=== PATIENT | female | born 1950 | race Asian ===

== ENCOUNTER 2023-09-30 15:49 | Outpatient (OUT) | payer MEDICARE, OTHER, SELFPAY ==
--- NOTE | 2023-09-30 15:57 | XR_ITS ---
[address] [address] Patient Name: SUZI FERNÁNDEZ MRN: [id number] date: 1950 Sex: F Assigned Patient Location: [facility] Current Patient Location: Accession/Order Number: [id number] Exam Date: 09/30/2023 16:19 Report Date: 10/02/2023 05:08 At the request of: KENNEDY BRITT Procedure: XR shoulder RT min 2V PROCEDURE: XR shoulder RT min 2V HISTORY: Right Shoulder Pain COMPARISON: None. FINDINGS: BONES:Mild degenerative changes acromioclavicular joint. Unremarkable humeral head and glenohumeral joint. SOFT TISSUES:No visible soft tissue swelling. EFFUSION:None visible. OTHER: Negative. XR/XR shoulder RT min 2V IMPRESSION: 1. Mild degenerative changes. Electronically authenticated by: SETH GAITAN Date: 10/02/2023 05:08
== END 2023-09-30 15:50 | disposition home or self-care (01) ==
LOC: RAD 15:53
PROVIDERS: PCP Nurse Practitioner; Visit Provider Nurse Practitioner
DX: M25.511 Pain in right shoulder (principal)
CPT/HCPCS: 73030

== ENCOUNTER 2024-12-31 09:54 | Observation (INO) | payer MEDICARE, OTHER, SELFPAY ==
[2024-12-31] VITALS (38 sets, daily range): BP systolic 135–178; BP diastolic 60–127; PULSE 43–148; TEMP 36.6–36.7; O2SAT 92–979; BMI 30.1; BMI 23.2
--- NOTE | 2024-12-31 10:19 | ECG_ITS ---
The [facility] Test Date: 2024-12-31 Pat Name: SUZI FERNÁNDEZ Department: Room: - Gender: Female Credit Collections Specialist: : 1950 Requested By: 1854 Order Number: [id number] Reading MD: KRYSTIN GRIJALVA M.D. Measurements Intervals [place] Rate: 132 P: -35911 MO: -15972 QRS: 100 QRSD: 84 T: 64 QT: 318 QTc: 396 Interpretive Statements 83804 Atrial fibrillation with rapid ventricular response 3233 Anteroseptal myocardial infarction, probably old [address] depression, probably digitalis effect 12133 Twave abnormality, possible lateral ischemia or digitalis effect 7102 Moderate right axis deviation 9150 abnormal ECG Compared to ECG 02/23/2017 01:52:38 Myocardial infarct finding now present Right-axis deviation now present Sinus rhythm no longer present ST (T wave) deviation still present Possible ischemia still present Electronically Signed On 12-31-2024 18:46:56 EDT by KRYSTIN GRIJALVA M.D.
--- NOTE | 2024-12-31 10:20 | XR_ITS ---
The [address] [address] Patient Name: SUZI FERNÁNDEZ MRN: [id number] date: 1950 Sex: F Assigned Patient Location: ER Current Patient Location: ED.MAIN Accession/Order Number: [id number] Exam Date: 12/31/2024 10:24 Report Date: 12/31/2024 11:07 At the request of: TONI LUCIO MD Procedure: XR chest 1V XR chest 1V 12/31/2024 10:30 AM SIGNS AND SYMPTOMS: ^sob PROTOCOL: Frontal radiograph of the chest COMPARISON: None FINDINGS: The trachea is midline. Atherosclerotic changes are noted in the aortic arch. The heart and mediastinal structures are within normal limits. Hazy bibasilar airspace opacities are noted left greater than right. This may be secondary to atelectasis or pneumonia. The bony thorax is intact. XR/XR chest 1V IMPRESSION: Hazy bibasilar airspace opacities are noted left greater than right. This may be secondary to atelectasis or pneumonia. Impression dictated by: Rob Redd M.D. 12/31/2024 11:07 AM [facility]ation [facility] Electronically authenticated by: [id number] Y Date: 12/31/2024 11:07
[2024-12-31 10:25] LABS: Hematocrit 42.9 % (36.0-48.0); Hemoglobin 15.1 g/dL (12.0-16.0); Immature Granulocytes Abs Auto 0.01 10^3/uL (0.00-0.03); Immature Granulocytes Pct Auto 0.2 % (0.0-0.5); Lymphocytes Absolute Auto 1.9 10^3/uL (1.2-3.8); Mean Corpuscular HGB Conc 35.2 g/dL (29.9-35.2); Mean Corpuscular Hemoglobin 31.3 pg (26.7-34.0); Mean Corpuscular Volume 89.0 fL (81.0-99.0); Platelet Count 200 10^3/uL (150-450); Red Blood Count 4.82 10^6/uL (4.20-5.40); White Blood Count 6.1 10^3/uL (4.0-11.0)
[2024-12-31 10:36] LABS: SARS-CoV-2 Ag NEGATIVE (NEGATIVE)
[2024-12-31 11:04] LABS: INR 0.96; Prothrombin Time 10.2 sec (9.0-11.6)
[2024-12-31 11:07] LABS: Alanine Aminotransferase 41 U/L (14-59); Albumin Globulin Ratio 0.8; Albumin Level 3.5 g/dL (3.4-5.0); Alkaline Phosphatase 106 U/L (46-116); Anion Gap 13.7; Aspartate Amino Transferase 24 U/L (15-37); Blood Urea Nitrogen 29.0 mg/dL (7.0-18.0); Calcium 9.3 mg/dL (8.5-10.1); Carbon Dioxide 27.3 mmol/L (21.0-32.0); Chloride 103 mmol/L (98-107); Estimated GFR (African America 38 (>=60 mL/min/1.73m^2); Estimated GFR (Non-African Ame 31 (>=60 mL/min/1.73m^2); Globulin 4.5 g/dL; Glucose 102 mg/dL (74-106); Magnesium 2.2 mg/dL (1.8-2.4); Potassium 3.0 mmol/L (3.5-5.1); Sodium 141 mmol/L (136-145); Total Protein 8.0 g/dL (6.4-8.2)
[2024-12-31] MEDS: DILTIAZEM HCL 25 MG/5 ML VIAL 10 MG IV (11:21)
--- NOTE | 2024-12-31 11:25 | ECG_ITS ---
The [facility] Test Date: 2024-12-31 Pat Name: SUZI FERNÁNDEZ Department: Room: - Gender: Female Rn Supplemental: : 1950 Requested By: 1854 Order Number: [id number] Reading MD: KRYSTIN GRIJALVA M.D. Measurements Intervals [place] Rate: 82 P: -75827 MT: -85572 QRS: 93 QRSD: 86 T: -44 QT: 358 QTc: 397 Interpretive Statements 1210 Atrial fibrillation [address] depression, probably digitalis effect 07867 Twave abnormality, possible lateral ischemia or digitalis effect 40399 Twave abnormality, possible inferior ischemia or digitalis effect 7102 Moderate right axis deviation 9150 abnormal ECG Compared to ECG 12/31/2024 10:15:33 Myocardial infarct finding no longer present ST (T wave) deviation still present Possible ischemia still present Electronically Signed On 12-31-2024 18:47:26 EDT by KRYSTIN GRIJALVA M.D.
--- NOTE | 2024-12-31 11:26 | ED_ITS ---
HPI - Chest Pain General Chief Complaint: Chest Pain Stated Complaint: COUGH, FEVER, RUNNY NOSE,CONGESTION, DIZZY Time Seen by Provider: 12/31/24 10:19 Source: patient Mode of arrival: walk-in Limitations: no limitations History of Present Illness HPI narrative: The patient 74-year-old female who is hypertensive the patient just came back from her trip to the [facility] on Friday, she does understand Estonian and she is providing most of the history although her helps sometimes with providing the history. The patient for the last few days has been having cough fever congestion and she just came back from the [facility] on Friday, did not have any chest pain but she does have some discomfort, no nausea no vomiting no other concerns no diarrhea The patient had no history of A-fib before and she also ran out of her medication for the last 2 weeks Related Data Allergies Allergy/AdvReac Type Severity Reaction Status Date / Time No Known Drug Allergies Allergy Verified 12/31/24 09:59 Review of Systems ROS Status of ROS 10 or more systems reviewed and unremark able except as noted in history and below PFSH PFSH Social History Little interest or pleasure in doing things: not at all Feeling down, depressed, or hopeless: not at all Exam Narrative Exam Narrative: Nurses notes and vital signs reviewed and patient is not hypoxic. General: Well-appearing and in no apparent distress. Skin: Warm, dry, no pallor noted. No rash. Head: Normocephalic, atraumatic. Neck: Supple, non-tender. Cardiovascular: Irregular rate and Rhythm without murmur, gallop or rub. Respiratory: No accessory muscle use or respiratory distress. Decreased air entry bilaterally at the bases Musculoskeletal: normal ROM, no calf or popliteal tenderness, no lower extremity edema/swelling GI: Abdomen is soft, non-distended. Normal bowel sounds. No masses appreciated. No tenderness to palpation. No rebound, guarding, or rigidity noted. Neurological: A&O x4. No cranial nerve dysfunction observed. No truncal ataxia. Moves all extremities. Sensation intact. Psychiatric: Cooperative and interactive. Normal mood and affect. Constitutional Vital Signs, click to edit/add: Last Vital Signs Temp 97.9 F 12/31/24 09:59 Pulse 79 12/31/24 11:30 Resp 16 12/31/24 11:30 BP 144/84 H 12/31/24 11:30 Pulse Ox 99 10/03/25 11:30 Course Vital Signs Vital signs: Vital Signs Temperature 97.9 F 12/31/24 09:59 Pulse Rate 92 H 12/31/24 09:59 Respiratory Rate 18 12/31/24 09:59 Blood Pressure 160/100 H 12/31/24 09:59 Pulse Oximetry 97 12/31/24 09:59 Temperature 97.9 F 12/31/24 09:59 Pulse Rate 79 12/31/24 11:30 Respiratory Rate 16 12/31/24 11:30 Blood Pressure 144/84 H 12/31/24 11:30 Pulse Oximetry 99 12/31/24 11:30 MDM - Chest Pain MDM Narrative Medical decision making narrative: The patient initial EKG showing A-fib with a heart rate of [address] elevation but there is some ST depression in lead V5 and V6 After the patient received Cardizem 1 dose bolus 10 mg as well as the drip started the EKG was repeated and it is showing heart rate of 82 with still some mild ST depression in V5 and V6 Patient troponin is 65 and it is mildly elevated could be secondary to the tachy cardia Right now the patient chest x-ray shows atelectasis versus pneumonia hazy opacity in the bases bilaterally The patient white blood cell was within normal and although the patient presented to us with cough her presentation seems to be more viral The patient D-dimer is elevated and there is a high suspicion of PE especially with the patient coming back from the [facility] on Friday and that was a long trip But the patient also had a chemistry that shows acute kidney injury with a GFR 31 the patient was started on IV fluid 1 L normal saline in addition to also the potassium repleted with p.o. potassium after the potassium result was 3 and the magnesium was within normal Right now I did discuss the case with and to rule out PE the patient will need a VQ scan as inpt , to avoid any contrast exposure Troponin is mildly elevated could be secondary to tachycardia Patient started on Lovenox 1 therapeutic dose in the ER The patient will be admitted under Dr Pat further evaluation of the new diagnosed A-fib as well as further evaluation of possible PE Lab Data Labs: Lab Results 12/31/24 12/31/24 12/31/24 Range/Units 10:15 10:16 10:39 WBC 6.1 (4.0-11.0) 10^3/uL RBC 4.82 (4.20-5.40) 10^6/uL Hgb 15.1 (12.0-16.0) g/dL Hct 42.9 (36.0-48.0) % MCV 89.0 (81.0-99.0) fL MCH 31.3 (26.7-34.0) pg MCHC 35.2 (29.9-35.2) g/dL RDW 13.4 (11.0-15.0) % Plt Count 200 (150-450) 10^3/uL MPV 11.7 (9.5-13.5) fL Neut % (Auto) 57.3 (43.0-75.0) % Lymph % (Auto) 30.8 (20.5-60.0) % [place] % (Auto) 10.4 (1.7-12.0) % Eos % (Auto) 0.8 L (0.9-7.0) % Baso % (Auto) 0.5 (0.2-2.0) % Neut # (Auto) 3.5 (1.4-6.5) 10^3/uL Lymph # (Auto) 1.9 (1.2-3.8) 10^3/uL [place] # (Auto) 0.6 (0.3-0.8) 10^3/uL Eos # (Auto) 0.1 (0.0-0.7) 10^3/uL Baso # (Auto) 0.0 (0.0-0.1) 10^3/uL Abs Immat Gran (auto) 0.01 (0.00-0.03) 10^3/uL Imm/Tot Granulo (auto) 0.2 (0.0-0.5) % PT 10.2 (9.0-11.6) sec INR 0.96 D-Dimer 0.64 H* (<=0.59) mg/L FEU Sodium 141 (136-145) mmol/L Potassium 3.0 L (3.5-5.1) mmol/L Chloride 103 (98-107) mmol/L Carbon Dioxide 27.3 (21.0-32.0) mmol/L Anion Gap 13.7 BUN 29.0 H (7.0-18.0) mg/dL Creatinine 1.62 H (0.55-1.02) mg/dL Est GFR ( Amer) 38 L (>=60 mL/min/1.73m^2) Est GFR (Non-Af Amer) 31 L (>=60 mL/min/1.73m^2) BUN/Creatinine Ratio 17.9 Glucose 102 (74-106) mg/dL Calcium 9.3 (8.5-10.1) mg/dL Magnesium 2.2 (1.8-2.4) mg/dL Total Bilirubin 0.7 (0.2-1.0) mg/dL AST 24 (15-37) U/L ALT 41 (14-59) U/L Alkaline Phosphatase 106 (46-116) U/L Troponin I High Sens 65.6 H* (4.0-51.3) pg/mL Total Protein 8.0 (6.4-8.2) g/dL Albumin 3.5 (3.4-5.0) g/dL Globulin 4.5 g/dL Albumin/Globulin Ratio 0.8 Influenza Type A Ag Negative Influenza Type B Ag Negative SARS-CoV-2 Ag (CV2AG) Negative (NEGATIVE) Discharge Plan Discharge Chief Complaint: Chest Pain Clinical Impression: Atrial fibrillation with rapid ventricular response, RAYMOND (acute kidney injury), Acute hypokalemia, Elevated troponin, D-dimer, elevated Patient Disposition: Admitted As Inpatient Time of Disposition Decision: 12:01
[2024-12-31] MEDS: POTASSIUM BICARBONATE/CIT 25 MEQ TABLET EFF 50 MEQ PO (12:21)
[2024-12-31] MEDS: ENOXAPARIN SODIUM 80 MG/0.8 ML SYRINGE 70 MG SUBQ (12:21)
[2024-12-31] MEDS: 0.9 % SODIUM CHLORIDE 1,000 ML 1000 ML IV (12:21)
--- NOTE | 2024-12-31 12:54 | CA_ITS ---
Patient Name: SUZI FERNÁNDEZ MR#: [id number] : 1950 Exam Date: 12/31/2024 Ordering Doctor: ADONAY KOROMA ECHOCARDIOGRAM REPORT PROCEDURE: CA ECHO DOPPLER COMPLETE INDICATIONS: A fib - resolved, hypertension, cardiac stent COMPARISON: None. DESCRIPTION: COMPLETE ECHOCARDIOGRAM Real-time transthoracic echocardiography with 2D, M-mode, spectral and color flow Doppler performed. QUALITY: Technical quality was good. LEFT VENTRICLE: Normal chamber size. Left ventricle wall thickness at upper limit of normal. Left ventricle stock function appears to be moderately reduced globally, in addition the septal apical segment is akinetic, ejection fraction is estimated to be approximately 35% DIASTOLIC: Grade 1 diastolic dysfunction ATRIAL SEPTUM: Appears intact LEFT ATRIUM: Normal chamber size. RIGHT ATRIUM: Normal chamber size. RIGHT VENTRICLE: Normal chamber size. Normal right ventricular systolic function. TRICUSPID VALVE: Normal mobility and thickness. No stenosis with trace regurgitation. No evidence of pulmonary hypertension.RVSP 31 mmHg MITRAL VALVE: Normal mobility and thickness. No evidence of mitral valve stenosis. There is no mitral annular calcification. Mild mitral regurgitation. AORTIC VALVE: Normal trileaflet appearance. No visible sclerosis. Normal leaflet mobility. No evidence of aortic valve stenosis. No aortic regurgitation. AORTIC ROOT: Normal diameter and appearance. Ascending aorta is normal in size. PULMONIC VALVE: Normal thickness and mobility. No stenosis. Trivial regurgitation. PERICARDIUM: No evidence of pericardial effusion. IVC: Normal size and Collapes with inspirations. PLEURA: CONCLUSION: Normal left ventricle cavity size and wall thickness Moderately reduced left ventricle systolic function globally, in addition the septal apical segment is akinetic, ejection fraction 35% Grade 1 diastolic dysfunction Normal right ventricle size and systolic function Normal right-sided pressures, RVSP 31 mmHg Mild mitral regurgitation Adult Echocardiography Procedure Report Left Ventricle LVEDD (3.7 - 5.6 cm): 5.08 cm LVESD (2.2 - 4.0 cm): 3.86 cm LVIVS thickness (0.6 - 1.2 cm): 1.12 cm LVPW thickness (0.5 - 1.0 cm): 0.99 cm e': 0.04 m/s E - e': 10.28 LVOT Max Gradient: 1.29 mm[Hg] LVOT Area (cm2): 0.57 m/s Peak Velocity (LVOT): 0.57 m/s Mean Velocity (LVOT): 0.40 m/s LVOT Diameter 2.13 cm Left Atrium LA Volume Index (2D A2C): 30.52 ml/m2 Left Atrium Systolic Dimension: 3.78 cm Mitral Valve MV E to A Ratio: 0.96 Mitral Valve A-Wave Peak Velocity: 0.47 m/s Mitral Valve E-Wave Peak Velocity: 0.46 m/s Right Ventricle Aorta AO Root Diam: 2.87 cm Ascending Ao Diam: 2.67 cm Aortic Valve AoV Area (Peak Nitin): 1.49 cm2, 1.49 cm2 AoV Area (VTI): 1.58 cm2, 1.58 cm2 Peak Velocity(Antegrade Flow): 1.36 m/s Peak Gradient(Antegrade Flow): 7.39 mm[Hg] Mean Velocity(Antegrade Flow): 0.85 m/s Mean Gradient(Antegrade Flow): 3.35 mm[Hg] Velocity Time Integral: 27.06 cm Tricuspid Valve Peak Velocity (Regurgitant Flow): 2.64 m/s, 2.45 m/s Pulmonic Valve Peak Velocity: 0.84 m/s Peak Gradient: 2.85 mm[Hg] Right Atrium Right Atrium Systolic Pressure: 16.94 ml, 16.94 ml Dictated by: Shantell Cantor MD on 12/31/2024 at 16:52 Approved by: Shantell Cantor MD on 12/31/2024 at 17:03
--- NOTE | 2024-12-31 13:59 | ECG_ITS ---
The [facility] Test Date: 2024-12-31 Pat Name: SUZI FERNÁNDEZ Department: Room: 2221 Gender: Female Wellness Coordinator: : 1950 Requested By: 1854 Order Number: [id number] Reading MD: KRYSTIN GRIJALVA M.D. Measurements Intervals [place] Rate: 46 P: 61 HI: 228 QRS: 98 QRSD: 94 T: 270 QT: 438 QTc: 398 Interpretive Statements 1130 Sinus bradycardia 2231 First degree AV block [address] depression [address] & Twave abnormality 7102 Moderate right axis deviation 9150 abnormal ECG Compared to ECG 12/31/2024 11:27:38 First degree AV block now present Atrial fibrillation no longer present ST (T wave) deviation still present Electronically Signed On 12-31-2024 18:48:15 EDT by KRYSTIN GRIJALVA M.D.
--- NOTE | 2024-12-31 13:59 | PC.NURSE ---
admitted to stepdown, oriented to call light and room. denies pain, had 1 time emesis of 50cc. assessment completed. stated she recently traveled back from the [facility], after being there for almost one year. pt ran out off her medications while there. er nurse stated she converted at 1300 prior to coming up to unit. this nurse called to bring in med bottles for dosing.
--- NOTE | 2024-12-31 14:07 | P.HP_ITS ---
HPI H&P: HPI History of Present Illness Chief complaint: COUGH, FEVER, RUNNY NOSE,CONGESTION, DIZZY, AFIB R Narrative: Mrs. Galaviz is a 74-year-old female who came to the emergency room after her trip coming back from the [facility]. Patient reported having chest discomfort, dizziness, cough and not feeling well. She was found to have A-fib with RVR. No prior history of A-fib. She reported having history of cardiac stent many years ago. She takes aspirin. She does not take Plavix according to her. Some language barrier therefore information may not be translated accurately by her. No chest pain just chest discomfort. No abdominal pain, nausea or vomiting. Opioid HPI Opioid Management Most Recent Pain and Opioid Data: Last ORT Total Score 0 Today, 13:24 Last ORT Risk Category Low Risk Today, 13:24 Review of Systems ROS Status of ROS 10 or more systems reviewed and unremark able except as noted in history and below PFSH PFS Medical History (Updated 12/31/24 @ 13:33 by Nelly Snyder) HTN (hypertension) ?I10 - Essential (primary) hypertension (ICD-10) Surgical History (Updated 12/31/24 @ 13:33 by Nelly Snyder) History of cholecystectomy ?Z90.49 - Acquired absence of other specified parts of digestive tract (ICD- 10) H/O heart artery stent ?Z95.5 - Presence of coronary angioplasty implant and graft (ICD-10) Social History Highest level of school completed/degree received: 9th grade Little interest or pleasure in doing things: not at all Feeling down, depressed, or hopeless: not at all Meds Home Medications and Allergies Allergies Allergy/AdvReac Type Severity Reaction Status Date / Time No Known Drug Allergies Allergy Verified 12/31/24 09:59 Exam Narrative Exam Narrative: [pt is awake and alert. oriented to place, time and person HEENT: [place] conjunctiva and NL buccal mucosa Neck: Supple, no tenderness Endocrine: No Thyromegaly. Vascular: No JVD or carotid bruit. Lymphatic: No cervical lymphadenopathy. Chest: CTA no DTP. Heart RRR, no extra sound or murmur. Patient converted to sinus rhythm on the monitor Abd: Soft, no tenderness, no rebound and no rigidity. Increase abd girth therefore clinically I could not exclude the possibility of intra abd mass or organomegaly. LE: No cyanosis or clubbing, no varices or edema. Neuro: A A O. Nl speech, comprehension and attention. Nl and symetrical motor and tone examination through out. []] Constitutional Vital Signs, click to edit/add: Last Vital Signs Temp 98.1 F 12/31/24 13:24 Pulse 49 L 12/31/24 14:00 Resp 15 12/31/24 14:00 BP 165/89 H 12/31/24 13:51 Pulse Ox 98 12/31/24 14:00 O2 Del Method Room Air 12/31/24 13:24 Results Labs Labs: Short CBC 12/31/24 Range/Units 10:15 WBC 6.1 (4.0-11.0) 10^3/uL Hgb 15.1 (12.0-16.0) g/dL Hct 42.9 (36.0-48.0) % Plt Count 200 (150-450) 10^3/uL BMP 12/31/24 10:39 Sodium 141 Potassium 3.0 L Chloride 103 Carbon Dioxide 27.3 BUN 29.0 H Creatinine 1.62 H Glucose 102 Calcium 9.3 Liver Function 12/31/24 Range/Units 10:39 Total Bilirubin 0.7 (0.2-1.0) mg/dL AST 24 (15-37) U/L ALT 41 (14-59) U/L Alkaline Phosphatase 106 (46-116) U/L Albumin 3.5 (3.4-5.0) g/dL Assessment and Plan Assessment and Plan (1) D-dimer, elevated: (2) Elevated troponin: (3) Acute hypokalemia: (4) RAYMOND (acute kidney injury): (5) Atrial fibrillation with rapid ventricular response: Plan A-fib with RVR. Patient was started on Cardizem drip in the emergency room department. Patient converted to sinus rhythm. Cardizem drip was placed on hold. Currently patient is bradycardic. Heart rate is 55. I suspect that patient may have sick sinus syndrome. Requested echocardiogram. Start patient on small dose beta-antonieta with holding parameters if heart rate is below 65. Her [id number] score is 3. I started patient on Lovenox 1 mg/kg twice a day. Request cardiac consultation. Further needed diagnostic and therapeutic intervention relative to her cardiovascular disease will be deferred to be addressed by cardiology. Positive D-dimer. Recent trip to the [facility]. CTA could not be done due to renal failure. Patient was started on therapeutic dose of Lovenox for A-fib. That could also serve as a treatment for PE if she has 1. We will proceed with a CT of the chest if her kidney function returns to normal or proceed with the VQ scan on Friday. Continue therapeutic dose of anticoagulation. Elevated troponin. Troponin is trending down. This elevation could be due to A-fib with RVR Patient however has underlying CAD. She reported having stent in the past. She is on aspirin. Not sure if there is any progression of her CAD since her stent. She may need to have additional ischemic evaluation. Request cardiac consultation. Defer further needed diagnostic and therapeutic invention of the cardiovascular disease to cardiology team. Renal failure. No old records available. Unknown etiology or chronicity. Requested UA to see if patient has any RBC or protein to suggest nephritis or nephrotic syndrome. This could be acute related to A-fib and diminish renal perfusion. Blood pressure is on the high side, avoid fluid infusion Hoping that kidney function will return back to normal now that patient is converted to sinus rhythm and renal perfusion is restored. Try to get kidney function record from her PCP. Hypokalemia Potassium supplementation
--- NOTE | 2024-12-31 15:08 | SWNOTE1 ---
SW attempted to complete BIRCH form with pt, pt voiced to call her . SW attempted to call pt's , no answer.
--- NOTE | 2024-12-31 16:25 | PC.NURSE ---
Dr. Pat notified of BP
[2024-12-31] MEDS: HYDROCHLOROTHIAZIDE 25 MG TABLET 6.25 MG PO (18:14)
[2024-12-31] MEDS: LOSARTAN POTASSIUM 50 MG TABLET PO (18:15)
[2024-12-31] MEDS: ASPIRIN 81 MG TABLET.DR PO (18:15)
--- NOTE | 2024-12-31 18:21 | PM.CACN ---
History of Present Illness History of Present Illness Consult date: 12/31/24 Requesting physician: Reinaldo Pat Chief complaint: COUGH, FEVER, RUNNY NOSE,CONGESTION, DIZZY, AFIB R Narrative: Patient is a 74-year-old female from [facility]. Cardiology was consulted because of A-fib with RVR. Patient has history of coronary artery disease and remote stenting many years ago in [place], she has been following with a acreage reporter in [place] she has a follow-up appointment with him on 01/04/2025. She never had arrhythmia according to her. She does not know anything about her heart function but she is metoprolol, losartan and aspirin. She reports that amlodipine was discontinued because of leg edema and atorvastatin was discontinued because she did not need it anymore. She was in [facility] for close to 1 year and said they came back while she was in the airport carrying her heavy suit she felt lightheaded and fatigued and she became sweaty, when she arrived home in [place] she continued to feel tired therefore she decided to come to the hospital. She was noted to be in A-fib with RVR heart rate in the 120, blood pressure was 160/100. She was started on Cardizem IV infusion however she converted to sinus bradycardia heart rate in the 55 therefore Cardizem was discontinued. Also it was noted that her creatinine was 1.62 with GFR of 31 but we do not know her baseline. Her troponin was 65 which is slightly elevated?normal up to 51, second troponin was 59. She received IV fluids and she was also started on IV antibiotics for possible pneumonia. She was started on metoprolol 12.5 mg twice daily because of the bradycardia and on Lovenox 70 mg SQ twice daily for anticoagulation. While she was in the [facility] she was physically very active and she denies any chest pain or shortness of breath at rest or with exertion. She denies orthopnea or paroxysmal nocturnal dyspnea or dizziness or palpitations or legs edema She denies smoking, alcohol or illicit drugs First EKG showed atrial fibrillation with ST-T changes in inferior and lateral leads and possible old anterior infarct. Second EKG showed sinus bradycardia heart rate 43 bpm with none specific ST changes and possible old and anterior infarct Echo performed today showed moderately reduced left ventricle systolic function globally, in addition the septal apical segment is akinetic, grade 1 left ventricular diastolic dysfunction, mild mitral rotation and trace tricuspid regurgitation. [facility] Medical History (Updated 12/31/24 @ 18:31 by Shantell Cantor MD) HTN (hypertension) ?I10 - Essential (primary) hypertension (ICD-10) Surgical History (Updated 12/31/24 @ 13:33 by Nelly Snyder) History of cholecystectomy ?Z90.49 - Acquired absence of other specified parts of digestive tract (ICD-10) H/O heart artery stent ?Z95.5 - Presence of coronary angioplasty implant and graft (ICD-10) Social History Highest level of school completed/degree received: 9th grade Little interest or pleasure in doing things: not at all Feeling down, depressed, or hopeless: not at all Meds Home Medications and Allergies Home Medications ?Medication ?Instructions ?Recorded ?Confirmed ?Type aspirin 81 mg tablet,delayed 81 mg PO DAILY 12/31/24 12/31/24 History release (Adult Aspirin Regimen) losartan 100 1 tab PO DAILY 12/31/24 12/31/24 History mg-hydrochlorothiazide 12.5 mg tablet meclizine 12.5 mg tablet 12.5 mg PO TID PRN dizziness 12/31/24 12/31/24 History metoprolol succinate 25 mg 25 mg PO DAILY 12/31/24 12/31/24 History tablet,extended release 24 hr Allergies Allergy/AdvReac Type Severity Reaction Status Date / Time No Known Drug Allergies Allergy Verified 12/31/24 09:59 Exam Narrative Exam Narrative: She is alert, oriented, not in apparent distress HEENT within normal limit Neck supple, normal range of motion, no carotid bruit, jugular venous pressure is normal Lungs clear to auscultation without rales or rhonchi or wheezes Cardiovascular system regular rate and rhythm, normal S1 and S2, no murmur or click Abdomen soft benign no organomegaly or tenderness Extremities no edema or cyanosis or clubbing Neurological examination grossly normal Constitutional Vital Signs, click to edit/add: Last Vital Signs Temp 98.0 F 12/31/24 18:19 Pulse 59 L 12/31/24 18:00 Resp 18 12/31/24 16:00 BP 146/80 H 12/31/24 17:05 Pulse Ox 99 12/31/24 16:00 O2 Del Method Room Air 12/31/24 16:00 Results Labs and Meds Lab results: Cardiac Enzymes 12/31/24 Range/Units 10:39 AST 24 (15-37) U/L Coagulation 12/31/24 Range/Units 10:39 PT 10.2 (9.0-11.6) sec CBC 12/31/24 Range/Units 10:15 WBC 6.1 (4.0-11.0) 10^3/uL RBC 4.82 (4.20-5.40) 10^6/uL Hgb 15.1 (12.0-16.0) g/dL Hct 42.9 (36.0-48.0) % Plt Count 200 (150-450) 10^3/uL Neut # (Auto) 3.5 (1.4-6.5) 10^3/uL Lymph # (Auto) 1.9 (1.2-3.8) 10^3/uL [place] # (Auto) 0.6 (0.3-0.8) 10^3/uL Eos # (Auto) 0.1 (0.0-0.7) 10^3/uL Baso # (Auto) 0.0 (0.0-0.1) 10^3/uL Comprehensive Metabolic Panel 12/31/24 Range/Units 10:39 Sodium 141 (136-145) mmol/L Potassium 3.0 L (3.5-5.1) mmol/L Chloride 103 (98-107) mmol/L Carbon Dioxide 27.3 (21.0-32.0) mmol/L BUN 29.0 H (7.0-18.0) mg/dL Creatinine 1.62 H (0.55-1.02) mg/dL Glucose 102 (74-106) mg/dL Calcium 9.3 (8.5-10.1) mg/dL AST 24 (15-37) U/L ALT 41 (14-59) U/L Alkaline Phosphatase 106 (46-116) U/L Total Protein 8.0 (6.4-8.2) g/dL Albumin 3.5 (3.4-5.0) g/dL Intake and Output 12/31/24 12/31/24 12/31/24 07:59 15:59 23:59 Intake Total 1020.667 / 1020.667 Output Total 50 / 50 Balance 970.667 / 970.667 Intake: IV 1020.667 / 1020.667 0.9 % Sodium Chloride 1,000 ml 1000 / 1000 @ 1000 mls/hr IV .Q1H ONE Rx#: [id number] dilTIAZem HCL 125 mg In 0.9 % 20.667 / 20.667 Sodium Chloride 100 ml @ 10 MG/ HR 10 mls/hr IV TITR ONE Rx#: [id number] Output: Emesis 50 / 50 Other: Weight 57.425 kg Patient Weight 01/01/25 07:59 Weight 57.425 kg Assessment and Plan Assessment and Plan (1) Atrial fibrillation with rapid ventricular response: Assessment and Plan: She converted to sinus bradycardia (2) Sinus bradycardia: Assessment and Plan: Asymptomatic (3) Elevated troponin: Assessment and Plan: Slight elevation most likely due to combination of A-fib with RVR and underlying renal insufficiency. The patient did not have any chest pain (4) Cardiomyopathy: Assessment and Plan: Most likely ischemic and most likely chronic but we do not have any records on the patient. She has global hypokinesis in addition to septal apical akinesis indicating prior cardiac events. She does not have any signs or symptoms of decompensated congestive heart failure. She is on metoprolol and losartan/hydrochlorothiazide at home (5) Coronary artery disease: Assessment and Plan: Currently clinically stable. She is on aspirin, and metoprolol at home. She is not on statin according to her because she does not need it (6) H/O heart artery stent: (7) HTN (hypertension): Assessment and Plan: She is on metoprolol and losartan/hydrochlorothiazide at home (8) Renal insufficiency: Assessment and Plan: It is not clear if it is acute or chronic. We do not have prior labs on her Plan Agree on starting her on small dose of metoprolol 12.5 mg twice daily due to sinus bradycardia Agree on Lovenox for anticoagulation for now. Consider starting her on Eliquis when she goes home. Dose should be adjusted depends on her creatinine because her weight is 57 kg Continue aspirin Continue to monitor rhythm Continue to monitor kidney function and when it improves restart losartan Check BNP We need to get her records from her acreage reporter. I asked the patient to ask her family to bring her doctor name and phone number so we can contact them to get her records. If the cardiomyopathy is a new finding she will need further workup for underlying ischemia probably Lexiscan nuclear stress test in light of absence of any anginal symptoms. If she is discharged home over the weekend make sure that patient keep her appointment with her acreage reporter on 01/04/2025 Shantell Cantor MD, FACC
[2024-12-31 19:08] LABS: NT Pro B Type Natriuretic Pept 834.0 pg/mL (<=900.0)
[2025-01-01] VITALS (64 sets, daily range): BP systolic 162–187; BP diastolic 82–97; PULSE 45–71; TEMP 36.6; O2SAT 97–99
[2025-01-01] MEDS: ENOXAPARIN SODIUM 80 MG/0.8 ML SYRINGE 70 MG SUBQ ×2 (00:35→08:13)
[2025-01-01 00:47] LABS: Glucose Urine UA NEGATIVE (NEGATIVE)
[2025-01-01 00:57] LABS: Cast Seen? NONE SEEN #/LPF (NONE SEEN); Crystals Seen? None Seen #/HPF (None Seen); Urine Culture Indicated NO
--- NOTE | 2025-01-01 06:52 | ECG_ITS ---
[facility] Test Date: 2025-01-01 Pat Name: SUZI FERNÁNDEZ Department: Room: 2221 Gender: Female [employer]: : 1950 Requested By: [id number] Order Number: [id number] Reading MD: KRYSTIN GRIJALVA M.D. Measurements Intervals [place] Rate: 64 P: -89 [place]: 207 QRS: 60 QRSD: 110 T: 128 QT: 376 QTc: 385 Interpretive Statements NORMAL SINUS RHYTHM with occasional interpolated ventricular premature complexes 2231 First degree AV block [address] depression [address] & Twave abnormality 0102 ARTIFACT PRESENT 9150 abnormal ECG Compared to ECG 12/31/2024 14:05:39 First degree AV block now present Right-axis deviation no longer present ST (T wave) deviation still present Electronically Signed On 01-02-2025 13:21:40 EDT by KRYSTIN GRIJALVA M.D.
[2025-01-01 07:14] LABS: Hematocrit 39.2 % (36.0-48.0); Hemoglobin 13.5 g/dL (12.0-16.0); Mean Corpuscular HGB Conc 34.4 g/dL (29.9-35.2); Mean Corpuscular Hemoglobin 31.1 pg (26.7-34.0); Mean Corpuscular Volume 90.3 fL (81.0-99.0); Platelet Count 159 10^3/uL (150-450); Red Blood Count 4.34 10^6/uL (4.20-5.40); White Blood Count 3.8 10^3/uL (4.0-11.0)
[2025-01-01 07:35] LABS: Basophils Abs Manual 0.07 10^3/uL (0.00-0.10); Basophils Percent Manual 2.0 % (0.2-2.0); Eosinophils Absolute Manual 0.07 10^3/uL (0.00-0.70); Eosinophils Percent Manual 2.0 % (0.9-7.0); Lymphocytes Absolute Manual 2.05 10^3/uL (1.20-3.80); Lymphocytes Percent Manual 54.0 % (20.5-60.0); Monocytes Absolute Manual 0.15 10^3/uL (0.30-0.80); Monocytes Percent Manual 4.0 % (1.7-12.0); Segmented Neut Absolute Manual 1.44 10^3/uL (1.4-6.5); Segmented Neutrophils % Manual 38.0 (43.0-75.0)
[2025-01-01 07:55] LABS: Anion Gap 14.7; Blood Urea Nitrogen 24.0 mg/dL (7.0-18.0); Calcium 9.2 mg/dL (8.5-10.1); Carbon Dioxide 26.8 mmol/L (21.0-32.0); Chloride 106 mmol/L (98-107); Cholesterol 216 mg/dL (<=200); Estimated GFR (African America 60 (>=60 mL/min/1.73m^2); Estimated GFR (Non-African Ame 49 (>=60 mL/min/1.73m^2); Glucose 95 mg/dL (74-106); HDL Cholesterol 42 mg/dL (40-60); Magnesium 2.0 mg/dL (1.8-2.4); NT Pro B Type Natriuretic Pept 640.0 pg/mL (<=900.0); Potassium 3.5 mmol/L (3.5-5.1); Sodium 144 mmol/L (136-145); Thyroid Stimulating Hormone 1.373 uIU/mL (0.358-3.740); Triglycerides 124 mg/dL (<=150); VLDL CHOLESTEROL 24.8 mg/dL
[2025-01-01] MEDS: ASPIRIN 81 MG TABLET.DR PO (08:13)
[2025-01-01] MEDS: LOSARTAN POTASSIUM 50 MG TABLET PO (08:13)
[2025-01-01] MEDS: HYDROCHLOROTHIAZIDE 25 MG TABLET 6.25 MG PO (08:13)
--- NOTE | 2025-01-01 12:27 | PM.PN ---
Progress Note: Subjective Subjective Interval history: Yesterday, the patient presented to the [place] ER with atrial fibrillation with rapid ventricular response. She does not seem to have a history of atrial fibrillation. She was started on a Cardizem infusion. She did convert to normal sinus rhythm shortly after the Cardizem infusion was started. Per the bedside nurse the patient has been in the [facility] for almost a year. The patient has a very difficult time communicating, partly due to his severe hearing loss and partly due to being a non-[place] speaker of [place]ian. It is felt that the patient was without her high blood pressure medications while in the [facility]. The patient does not know her medications. There was a recent fill history here in the [facility] at a [place] and her also brought in mail order blood pressure medications for the nurses to look at the medication list yesterday. The nurses held blood pressure medication with Toprol this morning because her heart rate was about 50 bpm on the monitor with normal sinus rhythm. But her blood pressure has been higher today, going up to 178/97. When I go into the room she has no family members with her. We are able to speak a little bit with each other and broken Panamanian. She says that she feels better than today. She could tell that her heart was beating very fast yesterday. She seems to deny chest pain or anginal equivalent. She had cardiology consultation here in [place] yesterday on Friday evening by Dr. Shantell Cantor, who points out that the patient is supposed to see her regular pharmacy technologist in [place] in about 4 days. An echocardiogram was performed that shows a moderately reduced left ventricle systolic function globally, in addition to septal apical segment is akinetic, grade 1 left ventricular diastolic dysfunction, mild mitral regurgitation and trace tricuspid regurgitation. The pharmacy technologist recommended starting her on a small dose of metoprolol 12.5 mg twice a day due to sinus bradycardia, consider starting her on Eliquis when she goes home, if the cardiomyopathy is a new finding she will need further workup for underlying ischemia, probably Lexiscan nuclear stress test, and absence of anginal symptoms. Exam Narrative Exam Narrative: General: Lying in bed here at lunchtime. No family members in the room. Telemetry review: Nice normal sinus rhythm. No PVCs. No PACs. No ongoing atrial fibrillation at all. She was mildly slow this morning and the monitor was reading 45 bpm but really what it was it was about 55 bpm with the occasional sinus arrhythmia. Right now her heart rate is 66 bpm. Pulmonary: Scattered rhonchi throughout consistent with an upper viral respiratory tract infection. Clear to the bases bilaterally. Mild cough present. No active wheezing. Cardia: Regular rate and rhythm to auscultation. No murmurs or rubs or gallops to auscultation. GI: Abdomen soft and nontender. Normal bowel sounds to auscultation. Lower extremities: No edema in ankles bilaterally. No swelling or knots or cords in the calves bilaterally. Constitutional Vital Signs, click to edit/add: Last Vital Signs Temp 97.9 F 01/01/25 07:27 Pulse 71 01/01/25 11:57 Resp 15 01/01/25 10:55 BP 178/97 H 01/01/25 10:55 Pulse Ox 97 01/01/25 07:20 O2 Del Method Room Air 01/01/25 07:27 Progress Note: Objective Labs Labs: Short CBC 01/01/25 Range/Units 06:46 WBC 3.8 L (4.0-11.0) 10^3/uL Hgb 13.5 (12.0-16.0) g/dL Hct 39.2 (36.0-48.0) % Plt Count 159 (150-450) 10^3/uL BMP 01/01/25 06:46 Sodium 144 Potassium 3.5 Chloride 106 Carbon Dioxide 26.8 BUN 24.0 H Creatinine 1.09 H Glucose 95 Calcium 9.2 Urine 01/01/25 Range/Units 00:30 Urine Color Lt. yellow (YELLOW) Urine Clarity Clear (CLEAR) Urine pH 6.0 (5.0-9.0) Ur Specific [place] 1.020 (1.005-1.025) Urine Protein Negative (NEG/TRACE) mg/dL Urine Glucose (UA) Negative (NEGATIVE) mg/dL Progress Note: A&P Assessment and Plan (1) Atrial fibrillation with rapid ventricular response: (2) Sinus bradycardia: (3) Elevated troponin: (4) Cardiomyopathy: (5) Coronary artery disease: (6) H/O heart artery stent: (7) HTN (hypertension): (8) Renal insufficiency: Plan Assessment and plan: A-fib with RVR. This seems to be a new diagnosis for this patient. Patient was started on Cardizem drip in the emergency room department. Patient converted to sinus rhythm while in the ER. Cardizem drip was placed on hold. Her [id number] score is 3. Currently on Lovenox 1 mg/kg twice a day. Positive D-dimer. Recent trip to the [facility]. Large amount of travel and immobility and long plane flights. CTA could not be done due to elevated creatinine of 1.62 in the ER. Today, next hospital morning, the patient's creatinine is 1.09. Will give IV fluids 500 mL normal saline bolus now and proceed with CT angiography of the chest. Elevated troponin. Troponin is trending down. This elevation could be due to A-fib with RVR Patient however has underlying CAD. She reported having stent in the past. She is on aspirin. Not sure if there is any progression of her CAD since her stent. Patient does require outpatient cardiology evaluation and management and likely additional ischemic evaluation. Hypokalemia Potassium supplementation Cough. Rhinorrhea. Likely has a viral upper respiratory tract infection. Echocardiogram report is inserted below: Patient Name: SUZI FERNÁNDEZ MR#: [id number] : 1950 Exam Date: 12/31/2024 Ordering Doctor: ADONAY KOROMA ECHOCARDIOGRAM REPORT PROCEDURE: CA ECHO DOPPLER COMPLETE INDICATIONS: A fib - resolved, hypertension, cardiac stent COMPARISON: None. DESCRIPTION: COMPLETE ECHOCARDIOGRAM Real-time transthoracic echocardiography with 2D, M-mode, spectral and color flow Doppler performed. QUALITY: Technical quality was good. LEFT VENTRICLE: Normal chamber size. Left ventricle wall thickness at upper limit of normal. Left ventricle stock function appears to be moderately reduced globally, in addition the septal apical segment is akinetic, ejection fraction is estimated to be approximately 35% DIASTOLIC: Grade 1 diastolic dysfunction ATRIAL SEPTUM: Appears intact LEFT ATRIUM: Normal chamber size. RIGHT ATRIUM: Normal chamber size. RIGHT VENTRICLE: Normal chamber size. Normal right ventricular systolic function. TRICUSPID VALVE: Normal mobility and thickness. No stenosis with trace regurgitation. No evidence of pulmonary hypertension.RVSP 31 mmHg MITRAL VALVE: Normal mobility and thickness. No evidence of mitral valve stenosis. There is no mitral annular calcification. Mild mitral regurgitation. AORTIC VALVE: Normal trileaflet appearance. No visible sclerosis. Normal leaflet mobility. No evidence of aortic valve stenosis. No aortic regurgitation. AORTIC ROOT: Normal diameter and appearance. Ascending aorta is normal in size. PULMONIC VALVE: Normal thickness and mobility. No stenosis. Trivial regurgitation. PERICARDIUM: No evidence of pericardial effusion. IVC: Normal size and Coll[place] with inspirations. PLEURA: CONCLUSION: Normal left ventricle cavity size and wall thickness Moderately reduced left ventricle systolic function globally, in addition the septal apical segment is akinetic, ejection fraction 35% Grade 1 diastolic dysfunction Normal right ventricle size and systolic function Normal right-sided pressures, RVSP 31 mmHg Mild mitral regurgitation Dictated by: Shantell Cantor MD on 12/31/2024 at 16:52 Approved by: Shantell Cantor MD on 12/31/2024 at 17:03 Plan at this time at the midday on Friday: Due to extensive travel will check CTA of the chest to rule out pulmonary embolus. Due to elevated blood pressure we will start the metoprolol at 12.5 mg twice daily, first dose now. I think she is having some rebound hypertension from missing beta-antonieta doses. Patient does have cardiology office visit set up on January 04. ++++ ++++ CTA of the chest showed no pulmonary embolus. Patient's son came in to help take the patient home. He does not speak the language to be able to directly translate for his mother. But I discussed with both the patient and the son at the bedside how the CTA showed no pulmonary embolus, atrial fibrillation with rapid ventricular response is a new problem and so now she needs to take Eliquis 5 mg twice daily. I recommend that she place her aspirin 81 mg daily on hold until she talks to her pharmacy technologist 4 days from now. She may need stress testing or follow-up echo cardiograms through the cardiology office. The patient says that she was without her routine medications for only 2 or 3 days because her usually males her supplies of medicines from the [facility] to the [facility] but when it became apparent that she would run out before the plane flight home he would not have been able to mail her a new supply in enough time. Clinically, I suspect that the patient may have had a higher degree of noncompliance with her medications while she was in the [facility].
[2025-01-01] MEDS: METOPROLOL SUCCINATE 25 MG TAB.ER.24H 12.5 MG PO (12:36)
[2025-01-01] MEDS: 0.9 % SODIUM CHLORIDE 500 ML IV (12:46)
--- NOTE | 2025-01-01 13:12 | CT_ITS ---
[address] [address] Patient Name: SUZI FERNÁNDEZ MRN: [id number] date: 1950 Sex: F Assigned Patient Location: Current Patient Location: Accession/Order Number: [id number] Exam Date: 01/01/2025 14:10 Report Date: 01/01/2025 14:35 At the request of: DEREK ASHFORD Procedure: CT angio chest CT ANGIOGRAM OF THE CHEST, PULMONARY EMBOLISM PROTOCOL: CLINICAL INFORMATION: Elevated d-dimer. A. fib. COMPARISON: None. TECHNIQUE: Following intravenous injection of contrast CT scans of the chest were obtained using pulmonary embolism protocol. Coronal and sagittal reconstructed images, as well as volume rendered CT pulmonary angiographic images were also submitted.The CT exam was performed using one or more of the following dose reduction techniques: Automated exposure control, adjustment of the MA and/or Kv according to patient size, or use of the iterative reconstruction technique. FINDINGS: Pulmonary Vasculature: Contrast bolus is adequate for evaluation of pulmonary embolism. Pulmonary trunk appears nondilated. No filling defects are identified to suggest pulmonary embolism. Mediastinum : Thoracic aorta is normal in caliber. No pericardial effusion. No lymphadenopathy. The esophagus is grossly unremarkable. Lungs: No focal consolidation, pneumothorax or pleural effusion. Mosaic attenuation suggestive of small airways disease. No lung scarring. Upper abdomen: No acute findings Soft tissue/bones: Soft tissues surrounding the chest wall demonstrate no acute findings. Osseous structures demonstrate degenerative change. CT/CT angio chest IMPRESSION: NO EVIDENCE OF ACUTE PULMONARY EMBOLISM OR PROCESS. Impression dictated by: Osvaldo Dooley Jr., D.OChris 01/01/2025 2:35 PM Dictation Location: Close Electronically authenticated by: [id number] Y Date: 01/01/2025 14:35
[2025-01-01] MEDS: POTASSIUM CHLORIDE 10 MEQ ER TABLET 50 MEQ PO (13:25)
--- NOTE | 2025-01-01 15:33 | P.DS_ITS ---
DS: Providers Provider Date of admission: 12/31/24 13:16 Primary care physician: KENNEDY BRITT Admitting clinician: Adonay Koroma Attending physician on admission: Adonay Koroma Consults: 12/31/24 14:14 Consult to Cardiology Routine Reason for consultation: New A-fib RVR, elevated troponin, history of CAD Attending physician on discharge: DEREK ASHFORD Discharging clinician: DEREK ASHFORD Anticipated date of discharge: 01/01/25 DS: Diagnosis Discharge Diagnosis (1) Atrial fibrillation with rapid ventricular response: (2) Sinus bradycardia: (3) Elevated troponin: (4) Cardiomyopathy: (5) Coronary artery disease: (6) H/O heart artery stent: (7) HTN (hypertension): (8) Renal insufficiency: Plan Primary diagnosis: Atrial fibrillation, with rapid physical response. Atrial fibrillation appears to be a new medical problem for the patient. Elevated creatinine, due to dehydration. Clinical suspicion of acute viral upper respiratory tract infection. Concern for pulmonary embolus due to multiple long plane flights and elevated D- dimer. Pulmonary embolus effectively ruled out by CT angiography of the chest. Elevated blood pressure in the setting of bradycardia. Uncertain if this is due to noncompliance with medications recently or has been a long-term problem for the patient. Left-ventricular ejection fraction of 35% on echocardiogram. DS: Summary Hospital Course Hospital Course: This is a 74-year-old woman who has been in the [facility] and just recently got back to the [facility]. She is trying to get dual citizenship. Her normally males her Bahamian medicines to her in the [facility], but she may have run out for a few days before her flight back to the [facility]. Shortly after getting back to [facility] she went to the [place] ER with tachycardia. She also had cough and fever and congestion. She does not report any chest pain. In the emergency room she had atrial fibrillation with rapid ventricular response and was placed on a Cardizem infusion and did convert back to sinus bradycardia while on the Cardizem infusion. She was placed in the hospital overnight on Friday night. On Friday afternoon she did have cardiology consultation by [facility] Dr. Shantell Cantor. He pointed out that she normally follows with crimper operator (Dr. Belle and then Dr. Lynch) out ugo Baker. He felt that the slight elevation in troponin was likely due to atrial fibrillation with rapid ventricular response and some underlying renal insufficiency. An echocardiogram did show a reduced ejection fraction. It is difficult to know at this time whether it is ischemic or due to the atrial fibrillation. The crimper operator did note global hypokinesis in addition to septal akinesis which would suggest that she has had prior cardiac events. The crimper operator recommended anticoagulation as she has a CHADS2 DS score of 3. The patient received Lovenox injections while she was in the hospital and a 1 month supply of Eliquis was sent to the [facility] pharmacy in [place] upon her discharge. Concern was also raised for deep vein thrombosis/pulmonary embolus as her D- dimer was high at 0.64. But on presentation her creatinine was high at 1.62. She was given IV fluids overnight. On the next morning her creatinine was 1.09. CTA was done that showed no evidence of pulmonary embolus. Time Spent with Patient Time attestation: Total time spent providing and/or coordinating discharge services: Exam Constitutional Vital Signs, click to edit/add: Last Vital Signs Temp 97.9 F 01/01/25 07:27 Pulse 57 L 01/01/25 14:00 Resp 15 01/01/25 10:55 BP 178/97 H 01/01/25 10:55 Pulse Ox 97 01/01/25 07:20 O2 Del Method Room Air 01/01/25 12:00 DS: Data Data Completed and Pending Labs on day of discharge: Labs from last 24 hours 01/01/25 01/01/25 12/31/24 06:46 00:30 10:39 WBC 3.8 L RBC 4.34 Hgb 13.5 Hct 39.2 MCV 90.3 MCH 31.1 MCHC 34.4 RDW 13.1 Plt Count 159 MPV 11.5 Neut % (Auto) Not Reportable Lymph % (Auto) Not Reportable Major % (Auto) Not Reportable Eos % (Auto) Not Reportable Baso % (Auto) Not Reportable Neut # (Auto) Not Reportable Lymph # (Auto) Not Reportable Major # (Auto) Not Reportable Eos # (Auto) Not Reportable Baso # (Auto) Not Reportable Abs Immat Gran (auto) Not Reportable Seg Neuts % (Manual) 38.0 L Lymphocytes % (Manual) 54.0 Monocytes % (Manual) 4.0 Eosinophils % (Manual) 2.0 Basophils % (Manual) 2.0 Imm/Tot Granulo (auto) Not Reportable Neutrophils # (Manual) 1.44 Lymphocytes # (Manual) 2.05 Monocytes # (Manual) 0.15 L Eosinophils # (Manual) 0.07 Basophils # (Manual) 0.07 Sodium 144 Potassium 3.5 Chloride 106 Carbon Dioxide 26.8 Anion Gap 14.7 BUN 24.0 H Creatinine 1.09 H Est GFR ( Amer) 60 Est GFR (Non-Af Amer) 49 L BUN/Creatinine Ratio 22.0 Glucose 95 Calcium 9.2 Magnesium 2.0 NT-Pro-B Natriuret Pep 640.0 834.0 Triglycerides 124 Cholesterol 216 H LDL Cholesterol, Calc 150.0 VLDL Cholesterol 24.8 HDL Cholesterol 42 Cholesterol/HDL Ratio 5.1 TSH 1.373 Urine Color Lt. yellow Urine Clarity Clear Urine pH 6.0 Ur Specific Hartman 1.020 Urine Protein Negative Urine Glucose (UA) Negative Urine Ketones Negative Urine Occult Blood Negative Urine Nitrite Negative Urine Bilirubin Negative Urine Urobilinogen 0.2 Ur Leukocyte Esterase Negative Urine RBC None seen Urine WBC 0-2 A Ur Squamous Epith Cells Moderate A Urine Crystals None seen Urine Bacteria Trace A Urine Casts None seen Urine Mucus None seen Ur Culture Indicated? No Additional Comments Additional comments: Echocardiogram report is inserted below: Ordering Physician: Adonay Koroma M.D. Date of Service: 12/31/24 Procedure(s): CA echo doppler complete Accession Number(s): [id number] cc: Adonay Koroma M.D.; KENNEDY BRITT Patient Name: SUZI FERNÁNDEZ MR#: [id number] : 1950 Exam Date: 12/31/2024 Ordering Doctor: ADONAY KOROMA ECHOCARDIOGRAM REPORT PROCEDURE: CA ECHO DOPPLER COMPLETE INDICATIONS: A fib - resolved, hypertension, cardiac stent COMPARISON: None. DESCRIPTION: COMPLETE ECHOCARDIOGRAM Real-time transthoracic echocardiography with 2D, M-mode, spectral and color flow Doppler performed. QUALITY: Technical quality was good. LEFT VENTRICLE: Normal chamber size. Left ventricle wall thickness at upper limit of normal. Left ventricle stock function appears to be moderately reduced globally, in addition the septal apical segment is akinetic, ejection fraction is estimated to be approximately 35% DIASTOLIC: Grade 1 diastolic dysfunction ATRIAL SEPTUM: Appears intact LEFT ATRIUM: Normal chamber size. RIGHT ATRIUM: Normal chamber size. RIGHT VENTRICLE: Normal chamber size. Normal right ventricular systolic function. TRICUSPID VALVE: Normal mobility and thickness. No stenosis with trace regurgitation. No evidence of pulmonary hypertension.RVSP 31 mmHg MITRAL VALVE: Normal mobility and thickness. No evidence of mitral valve stenosis. There is no mitral annular calcification. Mild mitral regurgitation. AORTIC VALVE: Normal trileaflet appearance. No visible sclerosis. Normal leaflet mobility. No evidence of aortic valve stenosis. No aortic regurgitation. AORTIC ROOT: Normal diameter and appearance. Ascending aorta is normal in size. PULMONIC VALVE: Normal thickness and mobility. No stenosis. Trivial regurgitation. PERICARDIUM: No evidence of pericardial effusion. IVC: Normal size and Collapes with inspirations. PLEURA: CONCLUSION: Normal left ventricle cavity size and wall thickness Moderately reduced left ventricle systolic function globally, in addition the septal apical segment is akinetic, ejection fraction 35% Grade 1 diastolic dysfunction Normal right ventricle size and systolic function Normal right-sided pressures, RVSP 31 mmHg Mild mitral regurgitation Adult Echocardiography Procedure Report Left Ventricle LVEDD (3.7 - 5.6 cm): 5.08 cm LVESD (2.2 - 4.0 cm): 3.86 cm LVIVS thickness (0.6 - 1.2 cm): 1.12 cm LVPW thickness (0.5 - 1.0 cm): 0.99 cm e': 0.04 m/s E - e': 10.28 LVOT Max Gradient: 1.29 mm[Hg] LVOT Area (cm2): 0.57 m/s Peak Velocity (LVOT): 0.57 m/s Mean Velocity (LVOT): 0.40 m/s LVOT Diameter 2.13 cm Left Atrium LA Volume Index (2D A2C): 30.52 ml/m2 Left Atrium Systolic Dimension: 3.78 cm Mitral Valve MV E to A Ratio: 0.96 Mitral Valve A-Wave Peak Velocity: 0.47 m/s Mitral Valve E-Wave Peak Velocity: 0.46 m/s Right Ventricle Aorta AO Root Diam: 2.87 cm Ascending Ao Diam: 2.67 cm Aortic Valve AoV Area (Peak Nitin): 1.49 cm2, 1.49 cm2 AoV Area (VTI): 1.58 cm2, 1.58 cm2 Peak Velocity(Antegrade Flow): 1.36 m/s Peak Gradient(Antegrade Flow): 7.39 mm[Hg] Mean Velocity(Antegrade Flow): 0.85 m/s Mean Gradient(Antegrade Flow): 3.35 mm[Hg] Velocity Time Integral: 27.06 cm Tricuspid Valve Peak Velocity (Regurgitant Flow): 2.64 m/s, 2.45 m/s Pulmonic Valve Peak Velocity: 0.84 m/s Peak Gradient: 2.85 mm[Hg] Right Atrium Right Atrium Systolic Pressure: 16.94 ml, 16.94 ml Dictated by: Shantell Cantor MD on 12/31/2024 at 16:52 Approved by: Shantell Cantor MD on 12/31/2024 at 17:03 Discharge Plan Discharge Disposition: Home, Self-Care Discharge Medications: New metoprolol succinate 25 mg Tablet Extended Release 24 Hr 12.5 mg PO QPM 30 Days Qty: 15 0RF Eliquis 5 mg tablet 5 mg PO BID Qty: 30 0RF Rx Instructions: Further refills, or adjustments, to be from your crimper operator. Continued losartan-hydrochlorothiazide 100-12.5 mg tablet 1 tab PO DAILY meclizine 12.5 mg tablet 12.5 mg PO TID PRN (Reason: dizziness) Held metoprolol succinate 25 mg tablet extended release 24 hr 25 mg PO DAILY Hold Instructions: Hold this until you see Dr. Lynch. Then discuss it with him. aspirin [Adult Aspirin Regimen] 81 mg tablet,delayed release (/EC) 81 mg PO DAILY Hold Instructions: Hold this, and discuss with your crimper operator. Print Language: Kittitian Forms: Portal Instructions
--- NOTE | 2025-01-01 16:37 | PC.NURSE ---
discharge instructions given to pt and . son also present. both verbalized understanding. belongings packed per pt, taken to exit via wheelchair, discharged to private vehicle.
--- NOTE | 2025-01-03 08:32 | PC.NURSE ---
follow up Dilma Cobian [address] [facility] [phone] Dec @10:00 sandfill operator surface appt was made before she was admitted to hospital for Dec so no appointment made.
--- OUTSIDE RECORDS SUMMARY | 2025-01-04 09:58 | XMS_ITS | Encounter Summary ---
Author Organization [facility] Address [address] [place] [address] Care Team Providers Care Dishcloth Folder Name Role Phone Pcp, No Primary Care Provider Lam Cunningham (Hist) Primary Care Provider + Claudine Garcia MD Primary Care Provider [phone] Source Comments In the event this information is protected by the Federal Confidentiality of Alcohol and Drug AbusePatient Records regulations: The Federal rules restrict any use of the information to criminally investigate or prosecute any alcohol or drug abuse patient.[facility] Encounter Details Date Type Department Care Team (Latest Contact Info) Description 11/04/2005 Prob Sum Review Provider, Cc Social History Tobacco Use Types Packs/Day Years Used Date Smoking Tobacco: Never Alcohol Use Standard Drinks/Week Comments Yes 0 (1 standard drink = 0.6 oz pur e alcohol) rare Comments No Sex and Gender Information Value Date Recorded Sex Assigned at Not on file Legal Sex Female 9:17 AM EST Gender Identity Not on file Sexual Orientation Not on file documented as of this encounter Plan of Treatment Not on file documented as of this encounter Visit Diagnoses Not on filedocumented in this encounter Care Teams Dishcloth Folder Relationship Specialty Start Date End Date PcpLizzy PCP - General 07/04/05 11/28/13 Lam Masterson (Hist) [address] [place] [id number] PCP - General Cardiology 08/30/15 06/16/16 Claudine Garcia MD [address] [place] [address] PCP - General Family Medicine 06/17/16 documented as of this encounter
--- OUTSIDE RECORDS SUMMARY | 2025-01-04 09:58 | XMS_ITS | Clinical Summary ---
Author Organization [facility] Address [address] [place] [address] Phone Care Team Providers Care Ticket Writer Name Role Phone Deepak Belle MD Unavailable Unavailabl Denisa Mcdonald LPN Unavailable [phone] Luz Maria Lynch MD Unavailable [phone] Allergies Active Allergy Reactions Criticality Noted Date Comments Codeine Hallucinations 01/08/2023 Medications allopurinol (Zyloprim) 100 mg tablet Take 1 tablet (100 mg) by mouth once daily. Active aspirin 81 mg EC tablet Take 1 tablet (81 mg) by mouth once daily. Active meclizine (Antivert) 12.5 mg tablet Take 1 tablet (12.5 mg) by mouth 3 times a day as needed for dizziness. Active potassium chloride CR 20 mEq ER tablet Take 1 tablet (20 mEq) by mouth every 12 hours. 1 Active atorvastatin (Lipitor) 40 mg tabletIndications: Mixed hyperlipidemia Take 1 tablet (40 mg) by mouth once daily at bedtime. 90 tablet 3 5 12/15/19 26 Active losartan-hydrochlo rothiazide (Hyzaar) 100-12.5 mg tabletIndications: Essential hypertension, benign Take 1 tablet by mouth once daily. 90 tablet 3 5 Active metoprolol succinate XL (Toprol-XL) 25 mg 24 hr tabletIndications: Essential hypertension, benign Take 1 tablet (25 mg) by mouth once daily. 90 tablet 3 5 Active atorvastatin (Lipitor) 40 mg tablet Take 1 tablet (40 mg) by mouth once daily at bedtime. 04/28/202 2 12/15/19 Discontinu ed(Reorder ) losartan-hydrochlo rothiazide (Hyzaar) 100-12.5 mg tabletIndications: Essential hypertension, benign TAKE 1 TABLET BY MOUTH DAILY 90 tablet 3 4 12/15/19 Discontinu ed(Reorder ) metoprolol succinate XL (Toprol-XL) 25 mg 24 hr tabletIndications: Essential hypertension, benign TAKE 1 TABLET BY MOUTH ONCE DAILY 90 tablet 3 4 12/15/19 Discontinu ed(Reorder ) Active Problems Problem Noted Date Diagnosed Date History of PTCA 09/26/2023 Atherosclerosis of augustine co ronary artery without angina pectoris 01/08/2023 Essential hypertension, benign 01/08/2023 Hyperlipidemia 01/08/2023 Hypokalemia 01/08/2023 Overweight (BMI 25.0-29.9) 01/08/2023 Encounters Date Type Department Care Team Description 01/03/2025 Patient Outreach [address] [phone] Denisa Vaughn LPN 12/14/[address] [phone] Annette Rogers RN Essential hypertension, benign; Mixed hyperlipidemia 11/01/2024 Patient Risk Score ACO Care Management [address] [place] [address] from Last 3 Months Immunizations Immunization Administration Dates Next Due Flu vaccine, trivalent, pres ervative free, HIGH-DOSE, age 65y+ (Fluzone) 01/03/2021,01/05/2020 Pfizer Purple Cap SARS-CoV-2 02/06/2021,08/01/19 21,07/11/2020 Pneumococcal conjugate vacci ne, 13-valent (PREVNAR 13) 07/06/2018 Family History Medical History Relation Name Comments Hypertension Brother Hypertension Father Hypertension Mother Hypertension Sister Relation Name Status Comments Brother Father Mother Sister Social History Tobacco Use Types Packs/Day Years Used Date Smoking Tobacco: Never Smokeless Tobacco: Never Tobacco Cessation:Counseling Given: Not Answered Alcohol Use Standard Drinks/Week Comments Not Currently 0 (1 standard drink = 0.6 oz pur e alcohol) Comments Unknown Sex and Gender Information Value Date Recorded Sex Assigned at Not on file Legal Sex Female 11:06 AM EST Gender Identity Not on file Sexual Orientation Not on file Last Filed Vital Signs Vital Sign Reading Time Taken Comments Blood Pressure 138/78 09/26/2023 3:29 PM EDT Pulse 58 09/26/2023 3:29 PM EDT Temperature 35.9 C (96.6 F) 09/11/2022 10:09 AM EDT Respiratory Rate 72 10/25/2022 2:26 PM EDT Oxygen Saturation - - Inhaled Oxygen Concentration - - Weight 59.4 kg (131 lb) 09/26/2023 3:29 PM EDT Height 158.8 cm (5' 2.5 ) 09/26/2023 3:29 PM EDT Body Mass Index 23.58 09/26/2023 3:29 PM EDT Plan of Treatment Upcoming Encounters Date Type Department Care Team (Late st Contact Info) Description 01/04/2025 1:00 PM EDT Office Visit [facility] [address] [facility] [address] [place] [address] Luz Maria Lynch MD [address] [facility] 2, [facility] [address] [place], [place] [id number] Health Maintenance Due Date Last Done Comments CT Colonography 1950 Colonoscopy 1950 Colorectal Cancer Screening 1950 FIT-DNA (Cologuard) 1950 FIT 1950 Lipid Panel 1950 Medicare Annual Wellness Visit (AWV) 1950 Sigmoidoscopy 1950 MMR Vaccines (1 of 1 - Standard series) 1953 Hepatitis C Screening 1970 DTaP/Tdap/Td Vaccines (1 - Tdap) 1974 Zoster Vaccines (1 of 2) 2002 RSV High Risk: (Elderly (60+) or Population) (1 - Risk 60-74 years 1-dose series) 2012 Bone Density Scan 2017 Pneumococcal Vaccine (2 of 2 - PPSV23, PCV20, or PCV21) 08/31/2018 07/06/2018 Mammogram 04/26/2022 04/26/2021, 04/17/2020 COVID-19 Vaccine (4 - season) 2024 02/06/2021, 07/31/2020, 07/11/2020 Influenza Vaccine (#1) 2024 4, 01/03/2021, 01/12/2020, Additional history exists HIB Vaccines Aged Out No longer eligi ble based on patient's age to complete this topic HPV Vaccines Aged Out No longer eligi ble based on patient's age to complete this topic Hepatitis A Vaccines Aged Out No long er eligible based on patient's age to complete this topic Hepatitis B Vaccines Aged Out No long er eligible based on patient's age to complete this topic IPV Vaccines Aged Out No longer eligi ble based on patient's age to complete this topic Meningococcal Vaccine Aged Out No rachel santos eligible based on patient's age to complete this topic Rotavirus Vaccines Aged Out No longer eligible based on patient's age to complete this topic Insurance MEDICARE [employer] [facility] AET MEDICARE [employer] [place] [employer]EFITS [employer] Care Teams Ticket Writer Relationship Specialty Start Date End Date Deepak Belle MD Retired From Practice PCP - [facility] ACO Attributed Provider 09/28/22 Denisa Vaughn, DIRECTOR SURGICAL Sap Technical ArchitectAccounting Lecturer 01/03/25 Luz Maria Lynch MD [address] [facility] [address] [place] [address] Consulting Physician Cardiology 01/03/25
--- OUTSIDE RECORDS SUMMARY | 2025-01-04 09:58 | XMS_ITS | Encounter Summary ---
Author Organization [facility] Address [address] [place] [address] Phone Care Team Providers Care Glass Driller Name Role Phone Deepak Belle MD Unavailable Unavailabl Denisa Mcdonald FOLDER SEAMER AUTOMATIC Unavailable [phone] Luz Maria Lynch MD Unavailable Encounter Details Date Type Department Care Team (Late st Contact Info) Description 07/02/2024 Patient Risk Score ACO Care Management [address] [facility] [address] [place] [address] Social History Tobacco Use Types Packs/Day Years Used Date Smoking Tobacco: Never Smokeless Tobacco: Never Alcohol Use Standard Drinks/Week Comments Not Currently 0 (1 standard drink = 0.6 oz pur e alcohol) Comments Unknown Sex and Gender Information Value Date Recorded Sex Assigned at Not on file Legal Sex Female 11:06 AM EST Gender Identity Not on file Sexual Orientation Not on file documented as of this encounter Plan of Treatment Upcoming Encounters Date Type Department Care Team (Late st Contact Info) Description 01/04/2025 1:00 PM EDT Office Visit [facility] [address] [facility] [address] [place] [address] Luz Maria Lynch MD [address] [facility] [address], [address] [place] [address] documented as of this encounter Visit Diagnoses Not on filedocumented in this encounter Additional Health Concerns Assessment Noted Time A fall risk assessment has been complete d for the patient 09/26/2023 3:29 PM EDT documented as of this encounter Care Teams Glass Driller Relationship Specialty Start Date End Date Deepak Belle MD Retired From Practice [facility] Attributed Provider 09/28/22 Denisa Vaughn, FOLDER SEAMER AUTOMATIC African History ProfessorVermin Exterminator 01/03/25 Luz Maria Lynch MD [address] [facility] 2, [facility] [address] [place] [phone] Consulting Physician Cardiology 01/03/25 documented as of this encounter
--- OUTSIDE RECORDS SUMMARY | 2025-01-04 09:58 | XMS_ITS | Encounter Summary ---
Author Organization [facility] Address [address] [place] [address] Phone Care Team Providers Care Business Management Manager Name Role Phone Deepak Belle MD Unavailable Unavailabl Denisa Mcdonald CORPORATE ACCOUNT EXECUTIVE Unavailable Luz Maria Lynch MD Unavailable Encounter Details Date Type Department Care Team (Late st Contact Info) Description 09/01/2024 Patient Risk Score ACO Care Management [address] [facility] [address] [place] [address] Social History Tobacco Use Types [...] Description 01/04/2025 1:00 PM EDT Office Visit [facility] [address] [facility] [address] [place] [address] Luz Maria Lynch MD [address] [facility] [address], [address] [place] [address] documented as of this encounter Visit Diagnoses Not on filedocumented in this encounter Additional Health Concerns Assessment Noted Time A fall risk assessment has been complete d for the patient 09/26/2023 3:29 PM EDT documented as of this encounter Care Teams Business Management Manager Relationship Specialty Start Date End Date Deepak Belle MD Retired From Practice [facility] Attributed Provider 09/28/22 Denisa Vaughn, CORPORATE ACCOUNT EXECUTIVE RadiopharmacistHealth Informatics Advisor 01/03/25 Luz Maria Lynch MD [address] [facility] 2, [facility] [address] [place] [phone] Consulting Physician Cardiology 01/03/25 documented as of this encounter
--- OUTSIDE RECORDS SUMMARY | 2025-01-04 09:58 | XMS_ITS | Encounter Summary ---
Author Organization [facility] Address [address] [place] [address] Phone Care Team Providers Care Lock Plater Name Role Phone Deepak Belle MD Unavailable Unavailabl Denisa Mcdonald HOB MACHINE OPERATOR Unavailable Luz Maria Lynch MD Unavailable [phone] Encounter Details Date Type Department Care Team (Late st Contact Info) Description 05/04/2024 Patient Risk Score ACO Care Management [address] [facility] [address] [place] [address] Social History Tobacco Use Types [...] Description 01/04/2025 1:00 PM EDT Office Visit [facility] [address] [facility] [address] [place] [address] Luz Maria Lynch MD [address] [facility] [address], [address] [place] [address] documented as of this encounter Visit Diagnoses Not on filedocumented in this encounter Additional Health Concerns Assessment Noted Time A fall risk assessment has been complete d for the patient 09/26/2023 3:29 PM EDT documented as of this encounter Care Teams Lock Plater Relationship Specialty Start Date End Date Deepak Belle MD Retired From Practice [facility] - [facility] Attributed Provider 09/28/22 Denisa Vaughn, HOB MACHINE OPERATOR Robotype OperatorTransportation Manager 01/03/25 Luz Maria Lynch MD [address] [facility] 2, [facility] [address] [place] [phone] Consulting Physician Cardiology 01/03/25 documented as of this encounter
--- OUTSIDE RECORDS SUMMARY | 2025-01-04 09:58 | XMS_ITS | Encounter Summary ---
Author Organization [facility] Address [address] [place] [address] Phone Care Team Providers Care Transportation Attendant Name Role Phone Deepak Belle MD Unavailable Unavailabl Denisa Mcdonald NUT THREADER Unavailable Luz Maria Lynch MD Unavailable Encounter Details Date Type Department Care Team (Late st Contact Info) Description 10/01/2024 Patient Risk Score ACO Care Management 75[address] [facility] [address] [place] [address] Social History Tobacco Use Types [...] Description 01/04/2025 1:00 PM EDT Office Visit [facility] 703 [facility] [address] [place] [address] Luz Maria Lynch MD 703 [facility] 2, [address] [place] [address] documented as of this encounter Visit Diagnoses Not on filedocumented in this encounter Additional Health Concerns Assessment Noted Time A fall risk assessment has been complete d for the patient 09/26/2023 3:29 PM EDT documented as of this encounter Care Teams Transportation Attendant Relationship Specialty Start Date End Date Deepak Belle MD Retired From Practice [facility] - [facility] Attributed Provider 09/28/22 Denisa Vaughn, NUT THREADER Recreation TherapistLead Pastor 01/03/25 Luz Maria Lynch MD 703 [facility] 2, [facility] [address] [place] [phone] Consulting Physician Cardiology 01/03/25 documented as of this encounter
--- OUTSIDE RECORDS SUMMARY | 2025-01-04 09:58 | XMS_ITS | Encounter Summary ---
Author Organization [facility] Address [address] [place] [address] Phone Care Team Providers Care Case Preparer And Liner Name Role Phone Deepak Belle MD Unavailable Unavailabl Denisa Mcdonald WAFER FABRICATION TECHNICIAN Unavailable Luz Maria Lynch MD Unavailable Encounter Details Date Type Department Care Team (Late st Contact Info) Description 08/01/2024 Patient Risk Score ACO Care Management 7580 [facility] [address] [place] [address] Social History Tobacco Use Types [...] Description 01/04/2025 1:00 PM EDT Office Visit [facility] 703 [facility] [address] [place] [address] Luz Maria Lynch MD 703 [facility] 2, [address] [place] [address] documented as of this encounter Visit Diagnoses Not on filedocumented in this encounter Additional Health Concerns Assessment Noted Time A fall risk assessment has been complete d for the patient 09/26/2023 3:29 PM EDT documented as of this encounter Care Teams Case Preparer And Liner Relationship Specialty Start Date End Date Deepak Belle MD Retired From Practice PCP - [facility] Attributed Provider 09/28/22 Denisa Vaughn, WAFER FABRICATION TECHNICIAN Cook SoupWelcome Center Attendant 01/03/25 Luz Maria Lynch MD 703 [facility] 2, [facility] [address] [place] [phone] Consulting Physician Cardiology 01/03/25 documented as of this encounter
--- OUTSIDE RECORDS SUMMARY | 2025-01-04 09:58 | XMS_ITS | Encounter Summary ---
Author Organization [facility] Address [address] [place] [address] Phone Care Team Providers Care Boiler Technician Name Role Phone Deepak Belle MD Unavailable Unavailabl Denisa Mcdonald DIGITAL AD TRAFFICKER Unavailable Luz Maria Lynch MD Unavailable Encounter Details Date Type Department Care Team (Late st Contact Info) Description 02/02/2024 Patient Risk Score ACO Care Management 7580 [facility] [address] [place] [address] Social History Tobacco Use Types [...] Description 01/04/2025 1:00 PM EDT Office Visit [facility] 703 [facility] [address] [place] [address] Luz Maria Lynch MD 703 [facility] 2, [address] [place] [address] documented as of this encounter Visit Diagnoses Not on filedocumented in this encounter Additional Health Concerns Assessment Noted Time A fall risk assessment has been complete d for the patient 09/26/2023 3:29 PM EDT documented as of this encounter Care Teams Boiler Technician Relationship Specialty Start Date End Date Deepak Belle MD Retired From Practice PCP - [facility] [place] Attributed Provider 09/28/22 Denisa Vaughn, DIGITAL AD TRAFFICKER Public Address ServicerNickel Operator 01/03/25 Luz Maria Lynch MD 703 [facility] 2, [facility] [address] [place] [phone] Consulting Physician Cardiology 01/03/25 documented as of this encounter
--- OUTSIDE RECORDS SUMMARY | 2025-01-04 09:58 | XMS_ITS | Patient Health Record ---
Author Organization [facility] Address [address] [place] [address] Care Team Providers Care Rib Matcher And Fitter Name Role Phone Jose TURPIN, Claudine Primary Care Provider Unavailabl e Reason For Referral No Information Medications Medication SIG (Take, Route, Fr equency, Duration) Notes Start Date End Date Status Metoprolol Tartrate Active Diovan Active Plavix tablet Active Antivert tablet Active Norvasc tablet Active Plan Of Treatment No Information Insurance Providers Payer Name Payer Address Payer Phone Subscriber Number Group Number Insured Name Patient Relationship to Insured Coverage Start Date Coverage End Date ANTHEM ACCESS PPO PLUS LOCAL PLAN [address] [place] [address] [id number] Lovely Galaviz Self - patient is the insured 3
--- OUTSIDE RECORDS SUMMARY | 2025-01-04 09:58 | XMS_ITS | Encounter Summary ---
Author Organization [facility] Address [address] [place] [address] Phone Care Team Providers Care Family Life Counselor Name Role Phone Deepak Belle MD Unavailable Unavailabl Denisa Mcdonald SYSTEMS ENGINEER Unavailable Luz Maria Lynch MD Unavailable Encounter Details Date Type Department Care Team (Late st Contact Info) Description 01/02/2024 Patient Risk Score ACO Care Management 7580 [facility] [address] [place] [address] Social History Tobacco Use Types [...] Description 01/04/2025 1:00 PM EDT Office Visit [facility] [address] [facility] [address] [place] [address] Luz Maria Lynch MD 703 [facility] 2, [address] [place] [address] documented as of this encounter Visit Diagnoses Not on filedocumented in this encounter Additional Health Concerns Assessment Noted Time A fall risk assessment has been complete d for the patient 09/26/2023 3:29 PM EDT documented as of this encounter Care Teams Family Life Counselor Relationship Specialty Start Date End Date Deepak Belle MD Retired From Practice PCP - [facility] Attributed Provider 09/28/22 Denisa Vaughn, SYSTEMS ENGINEER Civil Design SpecialistProbation And Patrol Agent 01/03/25 Luz Maria Lynch MD 703 [facility] 2, [place] [address] [place] [phone] Consulting Physician Cardiology 01/03/25 documented as of this encounter
--- OUTSIDE RECORDS SUMMARY | 2025-01-04 09:58 | XMS_ITS | Encounter Summary ---
Author Organization [facility] Address [address] [place] [address] Phone Care Team Providers Care Literacy Education Professor Name Role Phone Deepak Belle MD Unavailable Unavailabl Denisa Mcdonald DIRECTOR ZONE Unavailable Luz Maria Lynch MD Unavailable [phone] Encounter Details Date Type Department Care Team (Late st Contact Info) Description 11/01/2024 Patient Risk Score ACO Care Management 7580 [facility] [address] [place] [address] Social History Tobacco Use Types [...] EDT Office Visit [facility] 703 [facility] [address] [place] [address] Luz Maria Lynch MD 703 [facility] 2, [address] [place] [address] documented as of this encounter Visit Diagnoses Not on filedocumented in this encounter Additional Health Concerns Assessment Noted Time A fall risk assessment has been complete d for the patient 09/26/2023 3:29 PM EDT documented as of this encounter Care Teams Literacy Education Professor Relationship Specialty Start Date End Date Deepak Belle MD Retired From Practice PCP - [facility] Attributed Provider 09/28/22 Denisa Vaughn, DIRECTOR ZONE Grounds WorkerOffice Machine Mechanic 01/03/25 Luz Maria Lynch MD 703 [facility] 2, [facility] [address] [place] [phone] Consulting Physician Cardiology 01/03/25 documented as of this encounter
--- OUTSIDE RECORDS SUMMARY | 2025-01-04 09:58 | XMS_ITS | Encounter Summary ---
Author Organization [facility] Address [address] [place] [address] Phone Care Team Providers Care International Controller Name Role Phone Deepak Belle MD Unavailable Unavailabl Denisa Mcdonald NURSE ORTHO Unavailable [phone] Luz Maria Lynch MD Unavailable [phone] Encounter Details Date Type Department Care Team (Late st Contact Info) Description 04/03/2024 Patient Risk Score ACO Care Management 7580 [facility] [address] [place] [address] Social History Tobacco Use Types [...] Description 01/04/2025 1:00 PM EDT Office Visit [facility] 703 [facility] [address] [place] [address] Luz Maria Lynch MD 703 [facility] 2, [address] [place] [address] documented as of this encounter Visit Diagnoses Not on filedocumented in this encounter Additional Health Concerns Assessment Noted Time A fall risk assessment has been complete d for the patient 09/26/2023 3:29 PM EDT documented as of this encounter Care Teams International Controller Relationship Specialty Start Date End Date Deepak Belle MD Retired From Practice [place] [place] [facility] Attributed Provider 09/28/22 Denisa Vaughn, NURSE ORTHO Senior Ui Software EngineerInterventional Nurse 01/03/25 Luz Maria Lynch MD 703 [facility] 2, [facility] [address] [place] [phone] Consulting Physician Cardiology 01/03/25 documented as of this encounter
--- OUTSIDE RECORDS SUMMARY | 2025-01-04 09:58 | XMS_ITS ---
Author Organization [facility] Address [address] [place] [address] Phone Care Team Providers Care Pound Keeper Name Role Phone Deepak Belle MD Unavailable UnavailDenisa Huggins LPN Unavailable Luz Maria Lynch MD Unavailable [phone] Transitional Care Management Status:Enrolled (Active) Start date:01/03/2025 Enrollment date:01/03/2025 Current support & services provided:Medium Complexity Transitional Care Management Related social drivers of health:Social Connections, Alcohol Use, Financial Resource Strain, Depression, Stress, Physical Activity, Transportation Needs Case Team Name Relationship Phone Denisa Vaughn LPN(Responsible Staff) Car e Paralegal Instructor [phone] Continued Care and Services Coordination
--- OUTSIDE RECORDS SUMMARY | 2025-01-04 09:58 | XMS_ITS | Encounter Summary ---
Author Organization [facility] Address [address] [place] [address] Phone Care Team Providers Care Punchboard Stuffer Name Role Phone Deepak Belle MD Unavailable Unavailabl Denisa Mcdonald VIDEO SPECIALIST Unavailable [phone] Luz Maria Lynch MD Unavailable Encounter Details Date Type Department Care Team (Late st Contact Info) Description 03/03/2024 Patient Risk Score ACO Care Management 7580 [facility] [address] [place] [address] Social History Tobacco Use Types [...] Description 01/04/2025 1:00 PM EDT Office Visit [facility] 703 [facility] [address] [place] [address] Luz Maria Lynch MD 703 [facility] 2, [address] [place] [address] documented as of this encounter Visit Diagnoses Not on filedocumented in this encounter Additional Health Concerns Assessment Noted Time A fall risk assessment has been complete d for the patient 09/26/2023 3:29 PM EDT documented as of this encounter Care Teams Punchboard Stuffer Relationship Specialty Start Date End Date Deepak Belle MD Retired From Practice PCP - [facility] Attributed Provider 09/28/22 Denisa Vaughn, VIDEO SPECIALIST Set Off Press OperatorMastercam Programmer 01/03/25 Luz Maria Lynch MD 703 [facility] 2, [facility] [address] [place] [phone] Consulting Physician Cardiology 01/03/25 documented as of this encounter
--- OUTSIDE RECORDS SUMMARY | 2025-01-04 09:58 | XMS_ITS | Encounter Summary ---
Author Organization [facility] Address [address] [place] [address] Phone Care Team Providers Care Finished Stock Inspector Name Role Phone Claudine Garcia MD Primary Care Provider Deepak Belle MD Unavailable Unavailabl e Denisa Vaughn LPN Unavailable Luz Maria Lynch MD Unavailable [phone] Encounter Details Date Type Department Care Team (Late st Contact Info) Description 04/06/2019 Orders Only [facility] [address] [place] [address] Conversion, Onbase Social History Tobacco Use Types Packs/Day Years Used Date Smoking Tobacco: Never Assessed Comments Unknown Sex and Gender Information Value Date Recorded Sex Assigned at Not on file Legal Sex Female 11:06 AM EST Gender Identity Not on file Sexual Orientation Not on file documented as of this encounter Plan of Treatment Upcoming Encounters Date Type Department Care Team (Late st Contact Info) Description 01/04/2025 1:00 PM EDT Office Visit [place] [address] [facility] [address] [place] [address] Luz Maria Lynch MD 703 [facility] 2, [address] [place] [address] Scheduled Orders Name Type Priority Associated Diagnoses Orde r Schedule OUTSIDE LAB SCAN Lab Ordered: 04/06/2019 OUTSIDE LAB SCAN Lab Ordered: 04/06/2019 OUTSIDE LAB SCAN Lab Ordered: 04/06/2019 documented as of this encounter Visit Diagnoses Not on filedocumented in this encounter Care Teams Finished Stock Inspector Relationship Specialty Start Date End Date Claudine Garcia MD [address] [place] [address] PCP - General 08/31/18 09/25/23 Deepak Belle MD Retired From Practice PCP - [facility] ACO Attributed Provider 09/28/22 Denisa Vaughn, PRIVATE INVESTIGATOR Telephone Lines RepairerProperty Administrator 01/03/25 Luz Maria Lynch MD 703 [facility] 2, [address] [place] [address] Consulting Physician Cardiology 01/03/25 documented as of this encounter
--- OUTSIDE RECORDS SUMMARY | 2025-01-04 09:58 | XMS_ITS | Encounter Summary ---
Author Organization [facility] Address [address] [place] [address] Phone Care Team Providers Care Resource Forester Name Role Phone Deepak Belle MD Unavailable Unavailabl Denisa Mcdonald RIBBON SWEATBAND OPERATOR Unavailable Luz Maria Lynch MD Unavailable [phone] Encounter Details Date Type Department Care Team (Late st Contact Info) Description 06/01/2024 Patient Risk Score ACO Care Management 7580 [facility] [address] [place] [address] Social History Tobacco Use Types [...] Description 01/04/2025 1:00 PM EDT Office Visit [facility] 703 [facility] [address] [place] [address] Luz Maria Lynch MD 703 [facility] 2, [address] [place] [address] documented as of this encounter Visit Diagnoses Not on filedocumented in this encounter Additional Health Concerns Assessment Noted Time A fall risk assessment has been complete d for the patient 09/26/2023 3:29 PM EDT documented as of this encounter Care Teams Resource Forester Relationship Specialty Start Date End Date Deepak Belle MD Retired From Practice [facility] Attributed Provider 09/28/22 Denisa Vaughn, RIBBON SWEATBAND OPERATOR Assembly MechanicKnit Goods Cutter Hand 01/03/25 Luz Maria Lynch MD 703 [facility] 2, [facility] [address] [place] [phone] Consulting Physician Cardiology 01/03/25 documented as of this encounter
--- OUTSIDE RECORDS SUMMARY | 2025-01-04 09:58 | XMS_ITS | Clinical Summary ---
Author Organization [facility] Address [address] [place] [address] Care Team Providers Care Lockstitch Tunnel Elastic Operator Name Role Phone Unavailable Primary Care Provider Unavailabl e Allergies Active Allergy Reactions Criticality Noted Date Comments Hydrocodone 09/17/2022 Medications No known medications Active Problems Problem Noted Date Diagnosed Date Bilateral posterior capsular opacification 09/17 Social History Tobacco Use Types Packs/Day Years Used Date Smoking Tobacco: Never Smokeless Tobacco: Never Tobacco Cessation:Counseling Given: Not Answered Comments Unknown Sex and Gender Information Value Date Recorded Sex Assigned at Not on file Legal Sex Female 8:34 PM EDT Gender Identity Not on file Sexual Orientation Not on file Last Filed Vital Signs Vital Sign Reading Time Taken Comments Blood Pressure 122/80 04/23/2021 12:00 PM EST Pulse - - Temperature - - Respiratory Rate - - Oxygen Saturation - - Inhaled Oxygen Concentration - - Weight 65.8 kg (145 lb) 04/23/2021 12:00 PM EST Height 156.2 cm (5' 1.5 ) 04/23/2021 12:00 PM ES T Body Mass Index 26.95 04/23/2021 12:00 PM EST Plan of Treatment [place] [address] [employer]
--- OUTSIDE RECORDS SUMMARY | 2025-01-04 09:59 | XMS_ITS | Encounter Summary ---
Author Organization [facility] Address [address] [place] [address] Phone Care Team Providers Care Speech Assistant Name Role Phone Claudine Garcia MD Primary Care Provider Deepak Belle MD Unavailable Unavailabl e Denisa Vaughn LPN Unavailable [phone] Luz Maria Lynch MD Unavailable [phone] Encounter Details Date Type Department Care Team (Late st Contact Info) Description 05/04/2023 Patient Risk Score ACO Care Management [facility] [facility] [address] [place] [address] Social History Tobacco Use Types [...] Description 01/04/2025 1:00 PM EDT Office Visit [place] [address] [facility] [address] [place] [address] Luz Maria Lynch MD 703 [facility] 2, [address] [place] [address] documented as of this encounter Visit Diagnoses Not on filedocumented in this encounter Care Teams Speech Assistant Relationship Specialty Start Date End Date Claudine Garcia MD [address] [place] [address] PCP - General 08/31/18 09/25/23 Deepak Belle MD Retired From Practice PCP - [facility] Attributed Provider 09/28/22 Denisa Vaughn, MEDICAL ASSISTANT OB GYN Computer TesterWine Cellar Stock Clerk 01/03/25 Luz Maria Lynch MD 703 [facility] 2, [address] [place] [address] Consulting Physician Cardiology 01/03/25 documented as of this encounter
--- OUTSIDE RECORDS SUMMARY | 2025-01-04 09:59 | XMS_ITS | Encounter Summary ---
Author Organization [facility] Address [address] [place] [address] Phone Care Team Providers Care Coding Technician Name Role Phone Claudine Garcia MD Primary Care Provider [phone] Deepak Belle MD Unavailable Unavailabl e Denisa Vaughn LPN Unavailable Luz Maria Lynch MD Unavailable [phone] Encounter Details Date Type Department Care Team (Late st Contact Info) Description 08/02/2023 Patient Risk Score ACO Care Management [facility] [address] [place] [address] Social History Tobacco Use Types [...] Description 01/04/2025 1:00 PM EDT Office Visit [place] [address] [facility] [address] [place] [address] Luz Maria Lynch MD 3 [facility] 2, [address] [place] [address] documented as of this encounter Visit Diagnoses Not on filedocumented in this encounter Care Teams Coding Technician Relationship Specialty Start Date End Date Claudine Garcia MD [address] [place] [address] PCP - General 08/31/18 09/25/23 Deepak Belle MD Retired From Practice [facility] - [facility] Attributed Provider 09/28/22 Denisa Vaughn, FINISH SPECIALIST Chemist Water PurificationParts Delivery Driver 01/03/25 Luz Maria Lynch MD 703 [facility] 2, [address] [place] [address] Consulting Physician Cardiology 01/03/25 documented as of this encounter
--- OUTSIDE RECORDS SUMMARY | 2025-01-04 09:59 | XMS_ITS | Encounter Summary ---
Author Organization [facility] Address [address] [place] [address] Phone Care Team Providers Care Head Strength And Conditioning Coach Name Role Phone Deepak Belle MD Unavailable Unavailabl Denisa Mcdonald ASSEMBLER PRODUCTION LINE Unavailable Luz Maria Lynch MD Unavailable Encounter Details Date Type Department Care Team (Late st Contact Info) Description 12/03/2023 Patient Risk Score ACO Care Management 7580 [facility] [address] [place] [address] Social History Tobacco Use Types [...] Description 01/04/2025 1:00 PM EDT Office Visit [facility] 703 [facility] [address] [place] [address] Luz Maria Lynch MD 703 [facility] 2, [address] [place] [address] documented as of this encounter Visit Diagnoses Not on filedocumented in this encounter Additional Health Concerns Assessment Noted Time A fall risk assessment has been complete d for the patient 09/26/2023 3:29 PM EDT documented as of this encounter Care Teams Head Strength And Conditioning Coach Relationship Specialty Start Date End Date Deepak Belle MD Retired From Practice [facility] Attributed Provider 09/28/22 Denisa Vaughn, ASSEMBLER PRODUCTION LINE Sales Support SpecialistBar Machine Operator 01/03/25 Luz Maria Lynch MD 703 [facility] 2, [facility] [address] [place] [phone] Consulting Physician Cardiology 01/03/25 documented as of this encounter
--- OUTSIDE RECORDS SUMMARY | 2025-01-04 09:59 | XMS_ITS | Encounter Summary ---
Author Organization [facility] Address [address] [place] [address] Phone Care Team Providers Care Child Welfare Social Worker Name Role Phone Claudine Garcia MD Primary Care Provider Deepak Belle MD Unavailable Unavailabl e Denisa Vaughn LPN Unavailable Luz Maria Lynch MD Unavailable [phone] Encounter Details Date Type Department Care Team (Late st Contact Info) Description 06/02/2023 Patient Risk Score ACO Care Management [facility] [address] [place] [address] Social History Tobacco Use Types [...] Description 01/04/2025 1:00 PM EDT Office Visit [place] [address] [facility] [address] [place] [address] Luz Maria Lynch MD 703 [facility] 2, [address] [place] [address] documented as of this encounter Visit Diagnoses Not on filedocumented in this encounter Care Teams Child Welfare Social Worker Relationship Specialty Start Date End Date Claudine Garcia MD [address] [place] [address] PCP - General 08/31/18 09/25/23 Deepak Belle MD Retired From Practice [facility] [place] [facility] Attributed Provider 09/28/22 Denisa Vaughn, HOUSEHOLD REFRIGERATION MECHANIC Brazer Production LineConsultant Electronics 01/03/25 Luz Maria Lynch MD 703 [facility] 2, [address] [place] [address] Consulting Physician Cardiology 01/03/25 documented as of this encounter
--- OUTSIDE RECORDS SUMMARY | 2025-01-04 09:59 | XMS_ITS | Encounter Summary ---
Author Organization [facility] Address [address] [place] [address] Phone Care Team Providers Care Rehab Director Occupational Therapist Name Role Phone Deepak Belle MD Unavailable Unavailabl Denisa Mcdonald LEAD RADIOLOGIC TECHNOLOGIST Unavailable Luz Maria Lynch MD Unavailable Encounter Details Date Type Department Care Team (Late st Contact Info) Description 11/02/2023 Patient Risk Score ACO Care Management [address] [facility] [address] [place] [address] Social History Tobacco Use Types [...] Description 01/04/2025 1:00 PM EDT Office Visit [facility] 7[address] [facility] [address] [place] [address] Luz Maria Lynch MD 703 [facility] 2, [address] [place] [address] documented as of this encounter Visit Diagnoses Not on filedocumented in this encounter Additional Health Concerns Assessment Noted Time A fall risk assessment has been complete d for the patient 09/26/2023 3:29 PM EDT documented as of this encounter Care Teams Rehab Director Occupational Therapist Relationship Specialty Start Date End Date Deepak Belle MD Retired From Practice [facility] Attributed Provider 09/28/22 Denisa Vaughn, LEAD RADIOLOGIC TECHNOLOGIST Rn PlacementCash Poster 01/03/25 Luz Maria Lynch MD 703 [facility] 2, [facility] [address] [place] [id number] Consulting Physician Cardiology 01/03/25 documented as of this encounter
--- OUTSIDE RECORDS SUMMARY | 2025-01-04 09:59 | XMS_ITS | Encounter Summary ---
Author Organization [facility] Address [address] [place] [address] Phone Care Team Providers Care Central Office Repairer Supervisor Name Role Phone Claudine Garcia MD Primary Care Provider Deepak Belle MD Unavailable Unavailabl e Denisa Vaughn LPN Unavailable Luz Maria Lynch MD Unavailable [phone] Encounter Details Date Type Department Care Team (Late st Contact Info) Description 09/02/2023 Patient Risk Score ACO [facility] [address] [place] [address] Social History Tobacco Use Types [...] Description 01/04/2025 1:00 PM EDT Office Visit [place] [id number] [facility] [address] [place] [address] Luz Maria Lynch MD 703 [facility] 2, [address] [place] [address] documented as of this encounter Visit Diagnoses Not on filedocumented in this encounter Care Teams Central Office Repairer Supervisor Relationship Specialty Start Date End Date Claudine Garcia MD [address] [place] [address] PCP - General 08/31/18 09/25/23 Deepak Belle MD Retired From Practice PCP - [facility] Attributed Provider 09/28/22 Denisa Vaughn, SEAFOOD SERVICE TEAM MEMBER Certified Addiction CounselorSenior Electrical Designer 01/03/25 Luz Maria Lynch MD 703 [facility] 2, [address] [place] [address] Consulting Physician Cardiology 01/03/25 documented as of this encounter
--- OUTSIDE RECORDS SUMMARY | 2025-01-04 09:59 | XMS_ITS | Encounter Summary ---
Author Organization [facility] Address [address] [place] [address] Phone Care Team Providers Care Fisher Trammel Net Name Role Phone Claudine Garcia MD Primary Care Provider Deepak Belle MD Unavailable Unavailabl Denisa Mcdonald LPN Unavailable uLz Maria Lynch MD Unavailable [phone] Encounter Details Date Type Department Care Team (Late st Contact Info) Description 11/21/2020 Orders Only [facility] [address] [place] [address] Conversion, Onbase Social History Tobacco Use Types [...] Description 01/04/2025 1:00 PM EDT Office Visit [place] [address] [facility] [place] [facility] [address] [place] [address] Luz Maria Lynch MD 703 [facility] [place] [facility] 2, [address] [place] [address] Scheduled Orders Name Type Priority Associated Diagnoses Orde r Schedule OUTSIDE LAB SCAN Lab Ordered: 11/21/2020 documented as of this encounter Visit Diagnoses Not on filedocumented in this encounter Care Teams Fisher Trammel Net Relationship Specialty Start Date End Date Claudine Garcia MD [address] [place] [place] [address] PCP - General 08/31/18 09/25/23 Deepak Belle MD Retired From Practice PCP - [facility] ACO Attributed Provider 09/28/22 Denisa Vaughn, CHECKER/STOCKER Palliative Care PhysicianSports Marketing Specialist 01/03/25 Luz Maria Lynch MD 703 [facility] [place] [facility] 2, [address] [place] [address] Consulting Physician Cardiology 01/03/25 documented as of this encounter
--- OUTSIDE RECORDS SUMMARY | 2025-01-04 09:59 | XMS_ITS | Encounter Summary ---
Author Organization [facility] Address [address] [place] [address] Phone Care Team Providers Care Team Physician Name Role Phone Claudine Garcia MD Primary Care Provider Deepak Belle MD Unavailable Unavailabl e Denisa Vaughn LPN Unavailable Luz Maria Lynch MD Unavailable [phone] Encounter Details Date Type Department Care Team (Late st Contact Info) Description 09/11/2022 Orders Only [facility] [address] [place] [address] Conversion, Onbase Social History Tobacco Use Types Packs/Day Years Used Date Smoking Tobacco: Never Assessed Comments Unknown Sex and Gender Information Value Date Recorded Sex Assigned at Not on file Legal Sex Female 11:06 AM EST Gender Identity Not on file Sexual Orientation Not on file documented as of this encounter Functional Status * BP Answer Date of Assessment Author 143/82 09/11/2022 10:09 AM EDT Conversi on, [employer] Touch[employer] Vitals * Little interest or pleasure in doing things Answer Date of Assessment Author Not at all 09/11/2022 10:09 AM EDT Conversi on, [employer] Touch[employer] Vitals * Little interest or pleasure in doing things Answer Date of Assessment Author Not at all 09/11/2022 10:09 AM EDT Conversi on, [employer] Vitals documented as of this encounter Plan of Treatment Upcoming Encounters Date Type Department Care Team (Late st Contact Info) Description 01/04/2025 1:00 PM EDT Office Visit [facility] 703 [facility] [address] [place] [address] Luz Maria Lynch MD 703 [facility] 2, [facility] [address] [place] [address] Scheduled Orders Name Type Priority Associated Diagnoses Orde r Schedule AUDIOLOGY REPORT - ONBASE SCAN Audiology Ordered: 023 documented as of this encounter Visit Diagnoses Not on filedocumented in this encounter Care Teams Team Physician Relationship Specialty Start Date End Date Claudine Garcia MD [address] [facility] [place] [address] PCP - General 08/31/18 09/25/23 Deepak Belle MD Retired From Practice [facility] - [facility] Attributed Provider 09/28/22 Denisa Vaughn, APPLICATION SYSTEMS ARCHITECT Press Setup OperatorBenefits Consultant 01/03/25 Luz Maria Lynch MD 703 [facility] 2, [address] [address] Consulting Physician Cardiology 01/03/25 documented as of this encounter
--- OUTSIDE RECORDS SUMMARY | 2025-01-04 09:59 | XMS_ITS | Encounter Summary ---
Author Organization [facility] Address [address] [place] [address] Phone Care Team Providers Care Tar Heater Operator Name Role Phone Claudine Garcai MD Primary Care Provider Deepak Belle MD Unavailable Unavailabl Denisa Mcdonald LPN Unavailable Luz Maria Lynch MD Unavailable [phone] Encounter Details Date Type Department Care Team (Late st Contact Info) Description 01/10/2021 Orders Only [facility] [address] [place] [address] Conversion, Onbase Social History Tobacco Use Types [...] Description 01/04/2025 1:00 PM EDT Office Visit [facility] 7[address] [facility] [address] [place] [address] Luz Maria Lynch MD 703 [facility] 2, [address] [place] [address] Scheduled Orders Name Type Priority Associated Diagnoses Orde r Schedule OUTSIDE LAB SCAN Lab Ordered: 01/10/2021 documented as of this encounter Visit Diagnoses Not on filedocumented in this encounter Care Teams Tar Heater Operator Relationship Specialty Start Date End Date Claudine Garcia MD [address] MD [facility] [place] [address] PCP - General 08/31/18 09/25/23 Deepak Belle MD Retired From Practice PCP - [facility] ACO Attributed Provider 09/28/22 Denisa Vaughn, NEURORADIOLOGIST Raw Stock Drier TenderHouse Mover 01/03/25 Luz Maria Lynch MD 703 [facility] 2, [address] [place] [address] Consulting Physician Cardiology 01/03/25 documented as of this encounter
--- OUTSIDE RECORDS SUMMARY | 2025-01-04 09:59 | XMS_ITS | Encounter Summary ---
Author Organization [facility] Address [address] [place] [address] Phone Care Team Providers Care Chair Finisher Name Role Phone Claudine Garcia MD Primary Care Provider [phone] Deepak Belle MD Unavailable Unavailabl e Denisa Vaughn LPN Unavailable Luz Maria Lynch MD Unavailable [phone] Encounter Details Date Type Department Care Team (Late st Contact Info) Description 04/02/2023 Patient Risk Score ACO [facility] [address] [place] [address] Social History Tobacco Use Types [...] Description 01/04/2025 1:00 PM EDT Office Visit [place] [address] [facility] [address] [place] [address] Luz Maria Lynch MD 703 [facility] 2, [address] [place] [address] documented as of this encounter Visit Diagnoses Not on filedocumented in this encounter Care Teams Chair Finisher Relationship Specialty Start Date End Date Claudine Garcia MD [address] [place] [address] PCP - General 08/31/18 09/25/23 Deepak Belle MD Retired From Practice [facility] - [facility] Attributed Provider 09/28/22 Denisa Vaughn, CLINICAL OPERATIONS SPECIALIST Hand Etcher HelperAnthropometrist 01/03/25 Luz Maria Lynch MD 703 [facility] 2, [address] [place] [address] Consulting Physician Cardiology 01/03/25 documented as of this encounter
--- OUTSIDE RECORDS SUMMARY | 2025-01-04 09:59 | XMS_ITS | Encounter Summary ---
Author Organization [facility] Address [address] [place] [address] Phone Care Team Providers Care Medical Program Specialist Name Role Phone Claudine Garcia MD Primary Care Provider Deepak Belle MD Unavailable Unavailabl Denisa Mcdonald LPN Unavailable Luz Maria Lynch MD Unavailable [phone] Encounter Details Date Type Department Care Team (Late st Contact Info) Description 05/05/2021 Orders Only [facility] [address] [place] [address] Conversion, Onbase Social History Tobacco Use Types [...] Description 01/04/2025 1:00 PM EDT Office Visit [facility] 703 [facility] [address] [place] [address] Luz Maria Lynch MD 703 [facility] 2, [address] [place] [address] Scheduled Orders Name Type Priority Associated Diagnoses Orde r Schedule OUTSIDE LAB SCAN Lab Ordered: 05/05/2021 documented as of this encounter Visit Diagnoses Not on filedocumented in this encounter Care Teams Medical Program Specialist Relationship Specialty Start Date End Date Claudine Garcia MD [address] MD [facility] [place] [address] PCP - General 08/31/18 09/25/23 Deepak Belle MD Retired From Practice PCP - [facility] ACO Attributed Provider 09/28/22 Denisa Vaughn, FURNACE REPAIRER Testing AnalystChin Strap Sewer 01/03/25 Luz Maria Lynch MD 703 [facility] 2, [address] [place] [address] Consulting Physician Cardiology 01/03/25 documented as of this encounter
--- OUTSIDE RECORDS SUMMARY | 2025-01-04 09:59 | XMS_ITS | Clinical Summary ---
Author Organization [employer] Address [id number] [address] [place] [address] Care Team Providers Care Radiation Oncology Therapist Name Role Phone Claudine Garcia MD Primary Care Provider [phone] Allergies Active Allergy Reactions Criticality Noted Date Comments Codeine Nausea 03/20/2017 Propoxyphene N-Acetaminophen diaphoresis 2016 Medications metoprolol succinate XL (TOPROL-XL) 25 mg 24 hr tablet Take 25 mg by mouth daily. Active losartan (COZAAR) 50 mg tablet Take 50 mg by mouth daily. Active atorvastatin (LIPITOR) 10 mg tablet Take 10 mg by mouth daily. Active aspirin 81 mg Take 81 mg by mouth daily. Active Social History Tobacco Use Types Packs/Day Years Used Date Smoking Tobacco: Never Smokeless Tobacco: Never Alcohol Use Standard Drinks/Week Comments Yes 0 (1 standard drink = 0.6 oz pur e alcohol) Socially Childcare Answer Date Recorded Childcare Unknown 09/10/2018 Employment Answer Date Recorded Employment Unknown 09/10/2018 Purpose - Life Answer Date Recorded Purpose and direction in life Unknown Comments Unknown Sex and Gender Information Value Date Recorded Sex Assigned at Not on file Legal Sex Female 3:24 PM EST Gender Identity Not on file Sexual Orientation Not on file Last Filed Vital Signs Vital Sign Reading Time Taken Comments Blood Pressure 169/97 03/20/2017 1:14 PM EST Pulse 61 03/20/2017 1:14 PM EST Temperature 36.1 C (97 F) 03/20/2017 1:14 PM EST Respiratory Rate 14 03/20/2017 1:14 PM EST Oxygen Saturation - - Inhaled Oxygen Concentration - - Weight 63.5 kg (140 lb) 03/20/2017 1:14 PM EST Height 156.2 cm (5' 1.5 ) 03/20/2017 1:14 PM EST Body Mass Index 26.02 03/20/2017 1:14 PM EST Plan of Treatment Health Maintenance Due Date Last Done Comments Depression Screening 1964 Tobacco Screening 1964 Adult BMI Screening 1970 DTaP,Tdap and Td Vaccines (1 - Tdap) 10/13/1971 Zoster (Shingles) Vaccine (1 of 2) 2002 Fall Risk Screening 2017 Influenza Vaccine 11/29/2024 Medical Devices Not on file Insurance [id number] PLAN Care Teams Radiation Oncology Therapist Relationship Specialty Start Date End Date Claudine Garcia MD PCP - General Family Medicine 03/14/17
--- OUTSIDE RECORDS SUMMARY | 2025-01-04 09:59 | XMS_ITS | Encounter Summary ---
Author Organization [facility] Address [address] [place] [address] Phone Care Team Providers Care Plant Culture Manager Name Role Phone Claudine Garcia MD Primary Care Provider Deepak Belle MD Unavailable Unavailabl e Denisa Vaughn LPN Unavailable Luz Maria Lynch MD Unavailable [phone] Encounter Details Date Type Department Care Team (Late st Contact Info) Description 07/03/2023 Patient Risk Score ACO [facility] [address] [place] [address] Social History Tobacco Use Types [...] Description 01/04/2025 1:00 PM EDT Office Visit [place] [address] [facility] [address] [place] [address] Luz Maria Lynch MD 3 [facility] 2, [address] [place] [address] documented as of this encounter Visit Diagnoses Not on filedocumented in this encounter Care Teams Plant Culture Manager Relationship Specialty Start Date End Date Claudine Garcia MD [address] [place] [address] PCP - General 08/31/18 09/25/23 Deepak Belle MD Retired From Practice PCP - [facility] Attributed Provider 09/28/22 Denisa Vaughn, COLORIST FORMULATOR Page DesignerPress Tender Incendiary Grenade 01/03/25 Luz Maria Lynch MD 703 [facility] 2, [address] [place] [address] Consulting Physician Cardiology 01/03/25 documented as of this encounter
--- OUTSIDE RECORDS SUMMARY | 2025-01-04 09:59 | XMS_ITS | Encounter Summary ---
Author Organization [facility] Address [address] [place] [address] Phone Care Team Providers Care Construction Driver Name Role Phone Deepak Belle MD Unavailable Unavailabl Denisa Mcdonald AIR ANALYSIS ENGINEERING TECHNICIAN Unavailable Luz Maria Lynch MD Unavailable Encounter Details Date Type Department Care Team (Late Contact Info) Description 10/02/2023 Patient Risk Score ACO Care Management [address] [place] [address] Social History Tobacco Use Types [...] on file Sexual Orientation Not on file COVID-19 Exposure Response Date Recorded In the last 10 days, have yo u been in contact with someone who was confirmed or suspected to have Coronavirus/COVID-19? No / Unsure 09/26/2023 2:47 PM EDT documented as of this encounter Plan of Treatment Upcoming Encounters Date Type Department Care Team (Late Contact Info) Description 01/04/2025 1:00 PM EDT Office Visit [facility] 7[address] [facility] [address] [place] [address] Luz Maria Lynch MD [address] [facility] [address], [address] [place] [address] documented as of this encounter Visit Diagnoses Not on filedocumented in this encounter Additional Health Concerns Assessment Noted Time A fall risk assessment has been complete d for the patient 09/26/2023 3:29 PM EDT documented as of this encounter Care Teams Construction Driver Relationship Specialty Start Date End Date Deepak Belle MD Retired From Practice PCP - [facility] ACO Attributed Provider 09/28/22 Denisa Vaughn, AIR ANALYSIS ENGINEERING TECHNICIAN Rockboard LatherDirector Of Strategy & Mobile 01/03/25 Luz Maria Lynch MD 703 [facility] 2, [place] [address] Consulting Physician Cardiology 01/03/25 documented as of this encounter
--- NOTE | 2025-01-04 13:52 | CM.DCFOLLOWU ---
Person spoke with: The patient's How are you feeling? Not great How is your pain? No pain Did you understand your discharge instructions? Yes Do you have any questions about your discharge instructions? No Were you given any prescriptions at discharge? Yes Were you able to get your prescriptions filled? Yes Do you understand how to take your medications as ordered? Yes Do you have any questions about your follow up appointment and do you plan to keep your follow up appointment? Yes they were currently at the Web Editor's office Is there anything else that you would like to discuss? Patients states the Eliquis was causing his to have vertigo. He will discuss this medication with the Web Editor. Questions/Comments/Concerns/Other:
== END 2025-01-01 16:38 | disposition home or self-care (01) ==
LOC: ER 12:01 → MS 01-01 15:40
PROVIDERS: Internal Medicine Cardiovascular Disease; Admitting Provider Internal Medicine; Emergency Provider Emergency Medicine; PCP Nurse Practitioner; Visit Provider Internal Medicine
DX: I48.91 Unspecified atrial fibrillation (principal); E87.6 Hypokalemia; R79.89 Other specified abnormal findings of blood chemistry; Z95.5 Presence of coronary angioplasty implant and graft; Z79.82 Long term (current) use of aspirin; I25.10 Atherosclerotic heart disease of native coronary artery without angina pectoris; H91.90 Unspecified hearing loss, unspecified ear; I08.1 Rheumatic disorders of both mitral and tricuspid valves; R00.1 Bradycardia, unspecified; I11.9 Hypertensive heart disease without heart failure; I43 Cardiomyopathy in diseases classified elsewhere; N28.9 Disorder of kidney and ureter, unspecified; R05.9 Cough, unspecified; J34.89 Other specified disorders of nose and nasal sinuses; E86.0 Dehydration; Z79.899 Other long term (current) drug therapy
CPT/HCPCS: 36415; 71045; 71275; 80048; 80053; 80061; 81001; 83735; 83880; 84443; 84484; 85007; 85025; 85027; 85378; 85610; 87804; 87811; 93005; 93306; 93356; 96365; 96366; 96372; 96376; 99285; G0378; J1650; Q9967